=== PATIENT | female | born 1960 | race Caucasian/White ===

== ENCOUNTER 2016-06-03 10:00 | Inpatient (IN) | payer OTHER ==
[~2016-06-03] VITALS: Ht 165.1 cm; Wt 49.6 kg
[2016-06-03] VITALS (11 sets, daily range): BP systolic 128–236; BP diastolic 80–152
[2016-06-03] MEDS ORDERED: LABETALOL HCL 20 MG/4 ML VIAL IV ONE ×2 (10:15→11:00)
[2016-06-03 10:21] LABS: BASOPHILS # (AUTO) 0.1 10^3/uL (0.0-0.1); BASOPHILS % (AUTO) 1 % (0-10); EOSINOPHILS # (AUTO) 0.1 10^3/uL (0.0-0.3); EOSINOPHILS % (AUTO) 1 % (0-10); LYMPHOCYTES # (AUTO) 1.2 X 10^3 (1.0-4.0); LYMPHOCYTES % (AUTO) 10 % (12-44); MEAN CORPUSCULAR HEMOGLOBIN 30 PG (25-34); MEAN CORPUSCULAR HGB CONC 36 G/DL (32-36); MEAN CORPUSCULAR VOLUME 85 FL (80-99); MEAN PLATELET VOLUME 8.4 FL (7.4-10.4); MONOCYTES # (AUTO) 0.6 X 10^3 (0.0-1.0); MONOCYTES % (AUTO) 5 % (0-12); NEUTROPHILS # (AUTO) 10.2 X 10^3 (1.8-7.8); NEUTROPHILS % (AUTO) 84 % (42-75); PLATELET COUNT 237 10^3/uL (130-400); RED BLOOD COUNT 5.22 10^6/uL (4.35-5.85); RED CELL DISTRIBUTION WIDTH 12.7 % (10.0-14.5); WHITE BLOOD COUNT 12.2 10^3/uL (4.3-11.0)
[2016-06-03 10:30] LABS: INR 0.9 (0.8-1.4); PROTHROMBIN TIME PATIENT 12.1 SEC (12.2-14.7)
--- NOTE | 2016-06-03 10:34 | Diagnostic Imaging Report ---
EXAMINATION: Portable upright radiograph of the chest. INDICATION: Elevated blood pressure. FINDINGS: The lungs are hyperinflated and clear. The heart size is normal. No effusion or pneumothorax. The mediastinum and nahed appear unremarkable. IMPRESSION: Hyperinflated clear lungs. Dictated by: Dictated on workstation # [id number]
[2016-06-03 10:44] LABS: ALANINE AMINOTRANSFERASE 12 U/L (0-55); ALBUMIN 4.4 G/DL (3.2-4.5); ANION GAP 12 MMOL/L (5-14); ASPARTATE AMINO TRANSFERASE 20 U/L (5-34); BILIRUBIN,TOTAL 0.5 MG/DL (0.1-1.0); CALCIUM 9.5 MG/DL (8.5-10.1); CARBON DIOXIDE 21 MMOL/L (21-32); CHLORIDE 104 MMOL/L (98-107); CREATININE SERUM 0.75 MG/DL (0.60-1.30); GFR ESTIMATED > 60; GLUCOSE 117 MG/DL (70-105); MAGNESIUM 2.2 MG/DL (1.8-2.4); POTASSIUM 4.1 MMOL/L (3.6-5.0); SODIUM 137 MMOL/L (135-145); TOTAL PROTEIN 7.5 G/DL (6.4-8.2)
[2016-06-03] MEDS ORDERED: amLODIPine 5 MG (NORVASC) TAB PO ONE (11:00)
--- NOTE | 2016-06-03 11:01 | ED Cardiac General ---
History of Present Illness General Chief Complaint: Cardiac/General Problems Stated Complaint: ELEV BP Nursing Triage Note: ARRIVED VIA EMS FROM THE URGENT [facility]ARE [facility]. STATES YESTERDAY SHE WAS HAVING NUMBESS IN HER RIGHT LEG AND AGAIN THIS AM HAD THE SAME SYMPTOM. WENT TO URGENT CARE WHERE SHE WAS HAVING SEVERE HYPERTENSION. Source: patient, EMS Exam Limitations: no limitations History of Present Illness Time seen by provider: 10:04 Initial Comments This pleasant 55-year-old woman presents to the emergency room as a referral from [facility]. She presented to Urgent Care for upper extremity and right lower extremity paresthesias. She was found to be severely hypertensive with a blood pressure of 240/120. She was given aspirin and sent to the emergency room via EMS. Upon arrival her blood pressure was 244/140. Paresthesias were actually improving. She denies any chest pain. She had no cognitive deficits. She denies any drug or alcohol use. Patient reports the right lower extremity paresthesia is in the mid leg and was present yesterday. It recurs only with standing and she presumes to be related to sciatic irritation. The upper extremity paresthesias, however, are new today. She denies any headache or confusion. She is a recent and under much stress. Allergies and Home Medications Allergies Coded Allergies: Penicillins (Verified Allergy, Unknown, 06/03/16) Sulfa (Sulfonamide Antibiotics) (Verified Adverse Reaction, Unknown, ) MOM AND GRANDMA'S BOTH HAD ALLERGIES. Home Medications Alprazolam 0.25 Mg Tablet #30 0.25 MG PO Q8H PRN PRN ANXIETY Prescribed by: SUNITHA RODRIGUEZ on 06/04/16 1040 Amlodipine Besylate 5 Mg Tablet #30 5 MG PO DAILY Prescribed by: INDER BEARDEN on 06/04/16 0802 Metoprolol Succinate 25 Mg Tab.er.24h #30 25 MG PO DAILY Prescribed by: INDER BEARDEN on 06/04/16 0802 Review of Systems Constitutional: no symptoms reported EENTM: No Symptoms Reported Respiratory: No Symptoms Reported Cardiovascular: See HPI Gastrointestinal: No Symptoms Reported Genitourinary: No Symptoms Reported Musculoskeletal: no symptoms reported Skin: no symptoms reported Psychiatric/Neurological: See HPI Endocrine: No Symptoms Reported Past Nftxgiu-Almtqg-Otljgf Hx Patient Social History Alcohol Use: Denies Use Recreational Drug Use: No 2nd Hand Smoke Exposure: No Recent Foreign Travel: No Contact w/Someone Who Travel: No Recent Infectious Disease Expo: No Recent Hopitalizations: No Seasonal Allergies Seasonal Allergies: No Surgeries HX Surgeries: No Respiratory Hx Respiratory Disorders: No Cardiovascular Hx Cardiac Disorders: No Neurological Hx Neurological Disorders: No Reproductive System Hx Reproductive Disorders: No Sexually Transmitted Disease: No HIV/AIDS: No Genitourinary Hx Genitourinary Disorders: No Gastrointestinal Hx Gastrointestinal Disorders: No Musculoskeletal Hx Musculoskeletal Disorders: No Endocrine Hx Endocrine Disorders: No HEENT HX ENT Disorders: No Cancer Hx Cancer: No Psychosocial Hx Psychiatric Problems: No Blood Transfusions Hx Blood Disorders: No Adverse Reaction to a Blood Tr: No Family Medical History Significant Family History: Hypertension Physical Exam Vital Signs Vital Sign - Last 12Hours 06/03/16 06/03/16 10:02 10:05 Temp 98.6 Pulse 109 Resp 20 B/P 244/140 Pulse Ox 99 O2 Delivery Nasal Cannula O2 Flow Rate 2 Capillary Refill : Less Than 3 Seconds General Appearance: WD/WN Anxious (mildly anxious and briefly tearful) HEENT: PERRL/EOMI Normal ENT Inspection Pharynx Normal Neck: Normal Inspection Respiratory: Lungs Clear Normal Breath Sounds No Accessory Muscle Use No Respiratory Distress Cardiovascular: No Edema No Murmur Tachycardia (regular) Gastrointestinal: Normal Bowel Sounds Non Tender Soft Extremity: Normal Inspection No Pedal Edema Neurologic/Psychiatric: Alert Oriented x3 No Motor/Sensory Deficits Normal Mood/Affect director process improvement II-XII Norm as Tested Abnormal Cerebellar Tests Skin: Normal Color Warm/Dry Focused Exam Lactic Acid Level Laboratory Tests Test 06/03/16 08:45 06/03/16 10:10 Free Thyroxine 1.08NG/DL (0.70-1.48) Thyroid Stimulating Hormone (TSH) 1.46UIU/ML (0.35-4.94) Alanine Aminotransferase (ALT/SGPT) 12U/L (0-55) Albumin 4.4G/DL (3.2-4.5) Alkaline Phosphatase 91U/L (40-136) Anion Gap 12MMOL/L (5-14) Aspartate Amino Transf (AST/SGOT) 20U/L (5-34) BUN/Creatinine Ratio 11 Blood Urea Nitrogen 8MG/DL (7-18) Calcium Level 9.5MG/DL (8.5-10.1) Carbon Dioxide Level 21MMOL/L (21-32) Chloride Level 104MMOL/L (98-107) Creatinine 0.75MG/DL (0.60-1.30) Estimat Glomerular Filtration Rate > 60 Glucose Level 117MG/DL (70-105) H Magnesium Level 2.2MG/DL (1.8-2.4) Myoglobin 23.0NG/ML (10.0-92.0) Potassium Level 4.1MMOL/L (3.6-5.0) Sodium Level 137MMOL/L (135-145) Total Bilirubin 0.5MG/DL (0.1-1.0) Total Protein 7.5G/DL (6.4-8.2) Troponin I < 0.30NG/ML (<0.30) Progress/Results/Core Measures Results/Orders Lab Results Laboratory Tests Test 06/03/16 08:45 06/03/16 10:10 06/03/16 11:10 Range/Units Free Thyroxine 1.08 0.70-1.48 NG/DL Thyroid Stimulating Hormone (TSH) 1.46 0.35-4.94 UIU/ML Activated Partial Thromboplast Time 21 L 24-35 SEC Alanine Aminotransferase (ALT/SGPT) 12 0-55 U/L Albumin 4.4 3.2-4.5 G/DL Alkaline Phosphatase 91 40-136 U/L Anion Gap 12 5-14 MMOL/L Aspartate Amino Transf (AST/SGOT) 20 5-34 U/L BUN/Creatinine Ratio 11 Basophils # (Auto) 0.1 0.0-0.1 10^3/uL Basophils (%) (Auto) 1 0-10 % Blood Urea Nitrogen 8 7-18 MG/DL Calcium Level 9.5 8.5-10.1 MG/DL Carbon Dioxide Level 21 21-32 MMOL/L Chloride Level 104 98-107 MMOL/L Creatinine 0.75 0.60-1.30 MG/DL Eosinophils # (Auto) 0.1 0.0-0.3 10^3/uL Eosinophils (%) (Auto) 1 0-10 % Estimat Glomerular Filtration Rate > 60 Glucose Level 117 H 70-105 MG/DL Hematocrit 44 35-52 % Hemoglobin 15.8 11.5-16.0 G/DL INR Comment 0.9 0.8-1.4 Lymphocytes # (Auto) 1.2 1.0-4.0 X 10^3 Lymphocytes (%) (Auto) 10 L 12-44 % Magnesium Level 2.2 1.8-2.4 MG/DL Mean Corpuscular Hemoglobin 30 25-34 PG Mean Corpuscular Hemoglobin Concent 36 32-36 G/DL Mean Corpuscular Volume 85 80-99 FL Mean Platelet Volume 8.4 7.4-10.4 FL Monocytes # (Auto) 0.6 0.0-1.0 X 10^3 Monocytes (%) (Auto) 5 0-12 % Myoglobin 23.0 10.0-92.0 NG/ML Neutrophils # (Auto) 10.2 H 1.8-7.8 X 10^3 Neutrophils (%) (Auto) 84 H 42-75 % Platelet Count 237 130-400 10^3/uL Potassium Level 4.1 3.6-5.0 MMOL/L Prothrombin Time 12.1 L 12.2-14.7 SEC Red Blood Count 5.22 4.35-5.85 10^6/uL Red Cell Distribution Width 12.7 10.0-14.5 % Sodium Level 137 135-145 MMOL/L Total Bilirubin 0.5 0.1-1.0 MG/DL Total Protein 7.5 6.4-8.2 G/DL Troponin I < 0.30 <0.30 NG/ML White Blood Count 12.2 H 4.3-11.0 10^3/uL Urine Bacteria FEW H /HPF Urine Bilirubin NEGATIVE NEGATIVE Urine Casts NONE /LPF Urine Clarity CLEAR Urine Color YELLOW Urine Crystals NONE /LPF Urine Culture Indicated NO Urine Glucose (UA) NEGATIVE NEGATIVE Urine Ketones NEGATIVE NEGATIVE Urine Leukocyte Esterase NEGATIVE NEGATIVE Urine Mucus NEGATIVE /LPF Urine Nitrite NEGATIVE NEGATIVE Urine Protein 1+ H NEGATIVE Urine RBC NONE /HPF Urine RBC (Auto) NEGATIVE NEGATIVE Urine Specific [place] 1.015 L 1.016-1.022 Urine Squamous Epithelial Cells 10-25 H /HPF Urine Urobilinogen NORMAL NORMAL MG/DL Urine WBC RARE /HPF Urine pH 6.5 5-9 My Orders Orders-ALLEN MONTES MD Cbc With Automated Diff (06/03/16 10:08) Magnesium (06/03/16 10:08) Chest 1 View, Ap/Pa Only (06/03/16 10:08) Ekg Tracing (06/03/16 10:08) Cardiac Profile 1 (06/03/16 10:08) Comprehensive Metabolic Panel (06/03/16 10:08) Myoglobin Serum (06/03/16 10:08) Protime With Inr (06/03/16 10:08) Partial Thromboplastin Time (06/03/16 10:08) O2 (06/03/16 10:08) Monitor-Rhythm Ecg Trace Only (06/03/16 10:08) Lipid Panel (06/04/16 06:00) Saline Lock/Iv-Start (06/03/16 10:08) Labetalol Injection (Normodyne Injection (06/03/16 10:15) Thyroid Stimulating Hormone (06/03/16 10:13) Free T4 (Free Thyroxine) (06/03/16 10:13) Amlodipine Tablet (Norvasc Tablet) (06/03/16 11:00) Labetalol Injection (Normodyne Injection (06/03/16 11:00) Ua Culture If Indicated (06/03/16 11:03) Heart Healthy (06/03/16 Dinner) Medications Given in ED Vital Signs/I&O Vital Sign - Last 12Hours 06/03/16 06/03/16 10:02 10:05 Temp 98.6 Pulse 109 Resp 20 B/P 244/140 Pulse Ox 99 O2 Delivery Nasal Cannula O2 Flow Rate 2 Blood Pressure Mean: 174 Progress Note #1: Time: 11:06 Progress Note Patient remains significantly hypertensive with a blood pressure 187/108. An additional 10 mg of labetalol is being administered along with 5 mg of Norvasc orally. Heart rate has improved to 85. Progress Note #2: Time: 12:28 Progress Note Patient's blood pressure has remained stable with systolic blood pressures in the 180s and diastolic blood pressures in the 110s. While she is still rather hypertensive, this represents about a 25 percent drop in blood pressure which is appropriate for initial management. She has no paresthesias at this time. Heart rate remains controlled in the 80s. Workup was unremarkable. ECG Initial ECG Impression Date: Jun 03, 2016 Initial ECG Impression Time: 09:06 Initial ECG Rate: 109 Initial ECG Rhythm: S.Tach Comment Sinus tachycardia with no ST elevation or depression. No abnormal intervals or axis deviation. Diagnostic Imaging Diagonstic Imaging: Xray Plain Films/CT/US/NM/MRI: chest Comments Chest x-ray viewed by me and report reviewed. See report below: NAME: JUDITH KLINE [facility] REC#: [id number] PT STATUS: REG ER : 1960 PHYSICIAN: ALLEN MONTES MD ADMIT DATE: 06/03/16/ER Draft Date of Exam:06/03/16 CHEST 1 VIEW, AP/PA ONLY EXAMINATION: Portable upright radiograph of the chest. INDICATION: Elevated blood pressure. FINDINGS: The lungs are hyperinflated and clear. The heart size is normal. No effusion or pneumothorax. The mediastinum and nahed appear unremarkable. IMPRESSION: Hyperinflated clear lungs. Dictated on workstation # [id number] Dict: 06/03/16 1033 Trans: 06/03/16 1034 [id number] Interpreted by: DAVID HOWE MD Departure Communication Time/Spoke to Admitting Phy: 12:15 Communication Case was reviewed with Dr. Rodriguez who agrees with admission. She would like the patient on the cardiac step down unit. She requests consultation with Dr. Bearden for assistance in managing the hypertensive emergency. Time/Spoke to Consulting Physi: 12:20 Communication/Consulting Case reviewed with Dr. Bearden. He does not request any additional antihypertensives to be given at this time. He will assess the patient first. Call parameters were written on the bridging orders. Impression Impression: Primary Impression: Hypertensive emergency Additional Impressions: Paresthesias Sinus tachycardia Disposition: ADMITTED INPATIENT Condition: Improved Decision to Admit Reason: Admit from ER (General) Decision to Admit/Date: Jun 03, 2016 Time/Decision to Admit Time: 10:10 Departure-Patient Inst. Scripts Alprazolam 0.25 Mg Tablet0.25 Mg PO Q8H PRN ANXIETY #30 TAB Prov:SUNITHA RODRIGUEZ DO 06/04/16 Amlodipine Besylate 5 Mg Tablet5 Mg PO DAILY #30 TAB Ref 2 Prov:INDER BEARDEN MD 06/04/16 Metoprolol Succinate 25 Mg Tab.er.24h25 Mg PO DAILY #30 TAB Ref 2 Prov:INDER BEARDEN MD 06/04/16 ALLEN MONTES MD Jun 03, 2016 11:01 Time/Decision to Admit Time: 10:10 Departure-Patient Inst. Scripts No Active Prescriptions or Reported Meds ALLEN MONTES MD Jun 03, 2016 11:01
[2016-06-03 11:09] LABS: THYROID STIMULATING HORMONE 1.46 UIU/ML (0.35-4.94)
[2016-06-03 11:17] LABS: BILIRUBIN,URINE NEGATIVE (NEGATIVE); KETONES,URINE NEGATIVE (NEGATIVE); LEUKOCYTE ESTERASE ,URINE NEGATIVE (NEGATIVE); NITRITE,URINE NEGATIVE (NEGATIVE); PH,URINE 6.5 (5-9); PROTEIN,URINE 1+ (NEGATIVE); UROBILINOGEN,URINE NORMAL (NORMAL)
[2016-06-03 11:17] LABS: BLOOD UREA NITROGEN 8 MG/DL (7-18); BUN/CREATININE RATIO 11
[2016-06-03 11:29] LABS: WBC,URINE RARE /HPF
[2016-06-03] MEDS ORDERED: meTOprolol 5 MG/5 ML (LOPRESSOR) VIAL ONE (13:34)
[2016-06-03] MEDS ORDERED: ENALAPRILAT 2.5 MG/2 ML (VASOTEC) VIAL IV ONE (13:34)
[2016-06-03] MEDS ORDERED: ONDANSETRON 4 MG/2 ML (SDV) Z0FRAN IV PRN (13:45)
[2016-06-03] MEDS ORDERED: CATHETER FLUSH 10 ML SYR IV PRN (13:45)
[2016-06-03] MEDS ORDERED: ENALAPRILAT 2.5 MG/2 ML (VASOTEC) VIAL IV STA (13:47)
--- NOTE | 2016-06-03 13:48 | Consultation-Cardiology ---
HPI-Cardiology Cardiology Consultation Date of Consultation 06/03/16 Date of Admission Indication: hypertension HPI 55 years old lady with no significant past history, has been under significant stress after losing her few months ago. She was doing well, noted that she's been having numbness in her right leg. [place] weak in her right leg. Went to the urgent care and noted to be severely hypertensive, patient was sent to the emergency room and admitted up on my evaluation she was laying down in bed. Denied any chest pain or shortness of breath, expressed that she is feeling some numbness in her right leg but has history of sciatic nerve in back pain. Denied any palpitation, syncope or near syncopal episode, no shortness of breath , her blood pressure was over 200 systolic and over 120 diastolic. Home Medications & Allergies Allergies: Coded Allergies: Penicillins (Verified Allergy, Unknown, 06/03/16) Sulfa (Sulfonamide Antibiotics) (Verified Adverse Reaction, Unknown, ) MOM AND GRANDMA'S BOTH HAD ALLERGIES. Home Medication List Reviewed: Yes ONM-Kllpno-Omkpzx Hx Patient Social History Marital Status: Alcohol Use: Denies Use Recreational Drug Use: No 2nd Hand Smoke Exposure: No Recent Foreign Travel: No Recent Infectious Disease Expo: No Recent Hopitalizations: No Past Medical History no known past history Family Medical History Significant Family History: Hypertension Family Medical Hx family history of heart disease with both parents has history of hypertension, coronary artery disease and atrial fibrillation Constitutional: see HPINo chills, No diaphoresis, No dizziness, No fever, No malaise, weaknessNo weight gain, No weight loss, No other EENTM: no symptoms reported see HPI Respiratory: no symptoms reported see HPI Cardiovascular: no symptoms reported see HPI Gastrointestinal: no symptoms reported see HPI Genitourinary: no symptoms reported see HPI Musculoskeletal: no symptoms reported see HPI Skin: no symptoms reported see HPI Psychiatric/Neurological: No Symptoms Reported See HPI Reviewed Test Results Reviewed Test Results Lab Laboratory Tests Test 06/03/16 08:45 06/03/16 10:10 06/03/16 11:10 Range/Units Free Thyroxine 1.08 0.70-1.48 NG/DL Thyroid Stimulating Hormone (TSH) 1.46 0.35-4.94 UIU/ML Activated Partial Thromboplast Time 21 L 24-35 SEC Alanine Aminotransferase (ALT/SGPT) 12 0-55 U/L Albumin 4.4 3.2-4.5 G/DL Alkaline Phosphatase 91 40-136 U/L Anion Gap 12 5-14 MMOL/L Aspartate Amino Transf (AST/SGOT) 20 5-34 U/L BUN/Creatinine Ratio 11 Basophils # (Auto) 0.1 0.0-0.1 10^3/uL Basophils (%) (Auto) 1 0-10 % Blood Urea Nitrogen 8 7-18 MG/DL Calcium Level 9.5 8.5-10.1 MG/DL Carbon Dioxide Level 21 21-32 MMOL/L Chloride Level 104 98-107 MMOL/L Creatinine 0.75 0.60-1.30 MG/DL Eosinophils # (Auto) 0.1 0.0-0.3 10^3/uL Eosinophils (%) (Auto) 1 0-10 % Estimat Glomerular Filtration Rate > 60 Glucose Level 117 H 70-105 MG/DL Hematocrit 44 35-52 % Hemoglobin 15.8 11.5-16.0 G/DL INR Comment 0.9 0.8-1.4 Lymphocytes # (Auto) 1.2 1.0-4.0 X 10^3 Lymphocytes (%) (Auto) 10 L 12-44 % Magnesium Level 2.2 1.8-2.4 MG/DL Mean Corpuscular Hemoglobin 30 25-34 PG Mean Corpuscular Hemoglobin Concent 36 32-36 G/DL Mean Corpuscular Volume 85 80-99 FL Mean Platelet Volume 8.4 7.4-10.4 FL Monocytes # (Auto) 0.6 0.0-1.0 X 10^3 Monocytes (%) (Auto) 5 0-12 % Myoglobin 23.0 10.0-92.0 NG/ML Neutrophils # (Auto) 10.2 H 1.8-7.8 X 10^3 Neutrophils (%) (Auto) 84 H 42-75 % Platelet Count 237 130-400 10^3/uL Potassium Level 4.1 3.6-5.0 MMOL/L Prothrombin Time 12.1 L 12.2-14.7 SEC Red Blood Count 5.22 4.35-5.85 10^6/uL Red Cell Distribution Width 12.7 10.0-14.5 % Sodium Level 137 135-145 MMOL/L Total Bilirubin 0.5 0.1-1.0 MG/DL Total Protein 7.5 6.4-8.2 G/DL Troponin I < 0.30 <0.30 NG/ML White Blood Count 12.2 H 4.3-11.0 10^3/uL Urine Bacteria FEW H /HPF Urine Bilirubin NEGATIVE NEGATIVE Urine Casts NONE /LPF Urine Clarity CLEAR Urine Color YELLOW Urine Crystals NONE /LPF Urine Culture Indicated NO Urine Glucose (UA) NEGATIVE NEGATIVE Urine Ketones NEGATIVE NEGATIVE Urine Leukocyte Esterase NEGATIVE NEGATIVE Urine Mucus NEGATIVE /LPF Urine Nitrite NEGATIVE NEGATIVE Urine Protein 1+ H NEGATIVE Urine RBC NONE /HPF Urine RBC (Auto) NEGATIVE NEGATIVE Urine Specific [place] 1.015 L 1.016-1.022 Urine Squamous Epithelial Cells 10-25 H /HPF Urine Urobilinogen NORMAL NORMAL MG/DL Urine WBC RARE /HPF Urine pH 6.5 5-9 Physical Exam Vital Signs Vital Sign - Last 12Hours 06/03/16 06/03/16 10:02 10:05 Temp 98.6 Pulse 109 Resp 20 B/P 244/140 Pulse Ox 99 O2 Delivery Nasal Cannula O2 Flow Rate 2 Capillary Refill : Less Than 3 Seconds General Appearance: No Apparent Distress WD/WN Eyes: Bilateral Eye EOMI, Bilateral Eye Normal Inspection, Bilateral Eye PERRL HEENT: PERRL/EOMI TMs Normal Normal ENT Inspection Pharynx Normal Neck: Full Range of Motion Normal Inspection Non Tender Supple Carotid Bruit Respiratory: Chest Non Tender Lungs Clear Normal Breath Sounds No Accessory Muscle Use No Respiratory Distress Cardiovascular: Regular Rate, Rhythm No Edema No Gallop No JVD No Murmur Normal Peripheral Pulses Gastrointestinal: Normal Bowel Sounds No Organomegaly No Pulsatile Mass Non Tender Soft Back: Normal Inspection No CVA Tenderness No Vertebral Tenderness Extremity: Normal Capillary Refill Normal Inspection Normal Range of Motion Non Tender No Calf Tenderness No Pedal Edema Neurologic/Psychiatric: Alert Oriented x3 No Motor/Sensory Deficits Normal Mood/Affect Skin: Normal Color Warm/Dry Lymphatic: No Adenopathy A/P-Cardiology Admission Diagnosis Hypertensive emergency Anxiety Family history of atherosclerosis Assessment/Plan Hypertensive emergency, patient is still severely hypertensive. Given labetalol and Norvasc 5 mg in the emergency room, I started her on Toprol-XL 25 mg daily and Norvasc 5 mg daily, gave her 5 mg of Lopressor IV and 5 mg of enalapril IV for the acute phase. If she can tolerate a higher dose of beta blockers and amlodipine I will continue on them otherwise I will add KATHY inhibitor and/or ARB. I will consider the use of diuretics if needed. I will evaluate 2-D echocardiogram, renal arterial Doppler, electrolytes and TSH level were normal. Anxiety. Family history of heart disease INDER PARRISH MD Jun 03, 2016 13:47
[2016-06-03] MEDS: CATHETER FLUSH 10 ML SYR IV SCH ×2 (13:58→21:51)
[2016-06-03] MEDS ORDERED: ENOXAPARIN 40 MG/0.4 ML (LOVENOX) SYR SQ SCH (14:00)
[2016-06-03] MEDS ORDERED: FLU TRIvalent (5 YOA+) 2016-17 (AFLURIA) 0.5 ML IM ONE (16:00)
--- NOTE | 2016-06-03 16:49 | Diagnostic Imaging Report ---
Arterial renal duplex ultrasound. INDICATION: Hypertensive crisis. FINDINGS: The right kidney is 10.4 cm in length and the (right?) kidney is also 10.4 cm in length. There is no hydronephrosis or focal lesion in either kidney. The right renal artery velocities are 120, 78 and 70 cm/sec from proximal to distal and on the left 120, 144 and 107 cm/sec from proximal to distal. Abdominal aortic peak systolic velocity is 84 cm/sec. Resistive index in the right kidney is 0.68 and on the left side is 0.61 to 0.69. IMPRESSION: No evidence of renal artery stenosis. Unremarkable exam. Dictated by: Dictated on workstation # [id number]
--- NOTE | 2016-06-03 17:10 | History & Physical-Hospitalist ---
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 They took her blood pressure and it was 240/140 ambulance called sent to the emergency room was given appropriate medication that was tolerated well but considering the severity of the high blood pressure cardiology was consulted and will be monitored closely and she will establish with a primary care provider for close monitoring of blood pressure issues. I did talk to her about overwhelming anxiety increased reaction and she does wish to have something to calm her nerves which will help high blood pressure. Source: patient Date Seen 06/03/16 Attending Physician Alissa Spann DO PCP No,Local Physician Referring Physician Date of Admission Jun 03, 2016 at 12:59 Home Medications & Allergies Home Medications Reviewed patient Home Medication Reconciliation Form Allergies Coded Allergies: Penicillins (Verified Allergy, Unknown, 06/03/16) Sulfa (Sulfonamide Antibiotics) (Verified Adverse Reaction, Unknown, ) MOM AND GRANDMA'S BOTH HAD ALLERGIES. Past Xiffges-Bkdfou-Kywfpv Hx Patient Social History Marrital Status: (03/06) Alcohol Use: Denies Use Recreational Drug Use: No Smoking Status: Never a Smoker 2nd Hand Smoke Exposure: No Physical Abuse Screen: No Sexual Abuse: No Recent Foreign Travel: No Contact w/other who traveled: No Recent Hopitalizations: No Recent Infectious Disease Expo: No Seasonal Allergies Seasonal Allergies: No Surgeries HX Surgeries: No Respiratory Hx Respiratory Disorders: No Cardiovascular Hx Cardiovascular Disorders: No Neurological Hx Neurological Disorders: No Reproductive System Hx Reproductive Disorders: No Sexually Transmitted Disease: No HIV/AIDS: No Genitourinary Hx Genitourinary Disorders: No Gastrointestinal Hx Gastrointestinal Disorders: No Musculoskeletal Hx Musculoskeletal Disorders: No Endocrine Hx Endocrine Disorders: No HEENT HX ENT Disorders: No Cancer Hx Cancer: No Psychosocial Hx Psychiatric Problems: No Blood Transfusions Hx Blood Disorders: No Adverse Reaction to a Blood Tr: No Family Medical History Significant Family History: Hypertension Review of Systems Constitutional: see HPI EENTM: no symptoms reported Respiratory: no symptoms reported Cardiovascular: chest pain Gastrointestinal: no symptoms reported Genitourinary: no symptoms reported Musculoskeletal: back pain Skin: no symptoms reported Psychiatric/Neurological: Anxiety Depressed Physical Exam Physical Exam Vital Signs Vital Sign - Last 12Hours 06/03/16 06/03/16 10:02 10:05 Temp 98.6 Pulse 109 Resp 20 B/P 244/140 Pulse Ox 99 O2 Delivery Nasal Cannula O2 Flow Rate 2 Capillary Refill : Less Than 3 Seconds General Appearance: No Apparent Distress WD/WN Thin Other (flat affect) Eyes: Bilateral Eye Normal Inspection, Bilateral Eye PERRL HEENT: PERRL/EOMI Normal ENT Inspection Pharynx Normal Neck: Full Range of Motion Normal Inspection Non Tender Supple Carotid Bruit Respiratory: Chest Non Tender Lungs Clear Normal Breath Sounds No Accessory Muscle Use No Respiratory Distress Cardiovascular: Regular Rate, Rhythm No Edema No Gallop No JVD No Murmur Normal Peripheral Pulses Gastrointestinal: Normal Bowel Sounds No Organomegaly No Pulsatile Mass Non Tender Soft Back: Normal Inspection No CVA Tenderness No Vertebral Tenderness Extremity: Normal Capillary Refill Normal Inspection Normal Range of Motion Non Tender No Calf Tenderness No Pedal Edema Neurologic/Psychiatric: Alert Oriented x3 No Motor/Sensory Deficits Depressed Affect Skin: Normal Color Warm/Dry Lymphatic: No Adenopathy Results Results/Procedures Lab Laboratory Tests 06/03/16 10:10 Assessment/Plan Admission Diagnosis Assessment: Hypertensive urgency with borderline hypertension in the past but has not had it checked for many years with family history of hypertension 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
[2016-06-03] MEDS ORDERED: fentaNYL INJECTION 100 MCG/2 ML AMP IVP PRN (17:15)
[2016-06-03] MEDS ORDERED: ONDANSETRON 4 MG/2 ML (SDV) Z0FRAN IVP PRN (17:15)
[2016-06-03] MEDS ORDERED: ACETAMINOPHEN 500 MG TAB (TYLENOL) PO PRN (17:15)
[2016-06-03] MEDS ORDERED: HYDROcodone/APAP 5 MG/325 MG (LORTAB) TAB PO PRN (17:15)
[2016-06-03] MEDS ORDERED: ALPRAZolam 0.25 MG (XANAX) TAB PO PRN (17:15)
[2016-06-04] VITALS (7 sets, daily range): BP systolic 113–141; BP diastolic 66–89
[2016-06-04 04:50] LABS: CHOLESTEROL 173 MG/DL (< 200); DIRECT LDL 104 MG/DL (1-129); TRIGLYCERIDES 57 MG/DL (<150); VLDL CHOLESTEROL 11 MG/DL (5-40)
[2016-06-04 04:52] LABS: ALANINE AMINOTRANSFERASE 10 U/L (0-55); ALBUMIN 3.8 G/DL (3.2-4.5); ANION GAP 12 MMOL/L (5-14); ASPARTATE AMINO TRANSFERASE 14 U/L (5-34); BILIRUBIN,TOTAL 0.9 MG/DL (0.1-1.0); BLOOD UREA NITROGEN 13 MG/DL (7-18); BUN/CREATININE RATIO 18; CALCIUM 9.4 MG/DL (8.5-10.1); CARBON DIOXIDE 23 MMOL/L (21-32); CHLORIDE 103 MMOL/L (98-107); CREATININE SERUM 0.74 MG/DL (0.60-1.30); GFR ESTIMATED > 60; GLUCOSE 92 MG/DL (70-105); MAGNESIUM 2.2 MG/DL (1.8-2.4); POTASSIUM 3.5 MMOL/L (3.6-5.0); SODIUM 138 MMOL/L (135-145); TOTAL PROTEIN 6.1 G/DL (6.4-8.2)
[2016-06-04] MEDS: CATHETER FLUSH 10 ML SYR IV SCH (06:02)
--- NOTE | 2016-06-04 08:01 | Cardiology Progress Note ---
Subjective Subjective/Events-last exam patient is feeling better, no new complaint, blood pressure is better Review of Systems General: No Chills, No Night Sweats, No Fatigue, No Malaise, No Appetite, No Other HEENT: No Head Aches, No Visual Changes, No Eye Pain, No Ear Pain, No Dysphasia , No Sinus Congestion, No Post Nasal Drip, No Sore Throat, No Other Pulmonary: No Dyspnea, No Cough, No Pleuritic Chest Pain, No Other Cardiovascular: No: Chest Pain, Edema, Lt Headedness, Orthopnea, Other, Palpitations, Paroxysmal Noc. Dyspnea Objective-Cardiology Exam Last Set of Vital Signs Vital Signs 06/03/16 06/04/16 06/04/16 10:05 04:00 06:00 Temp 97.2 Pulse 75 Resp 18 B/P 120/73 Pulse Ox 99 O2 Delivery Room Air O2 Flow Rate 2 Capillary Refill : Less Than 3 Seconds I&O Bad tableGeneral: Alert, Oriented X3, Cooperative HEENT: Atraumatic, PERRLA Neck: Supple, No JVD, No Thyromegaly Lungs: Clear to Auscultation, Normal Air Movement Heart: Regular Rate, Normal S1, Normal S2, No Murmurs Abdomen: Normal Bowel Sounds, Soft, No Tenderness, No Hepatosplenomegaly, No Masses Extremities: No Clubbing, No Cyanosis, No Edema, Normal Pulses, No Tenderness/ Swelling Skin: No Rashes, No Breakdown, No Significant Lesion Neuro: Normal Gait, Normal Speech, Strength at 5/5 X4 Ext, Normal Tone, Sensation Intact Psych/Mental Status: Mental Status NL, Mood NL Results Lab Laboratory Tests 06/03/16 10:10 06/04/16 03:34 A/P-Cardiology Admission Diagnosis Hypertensive emergency Anxiety Family history of atherosclerosis Assessment/Plan Hypertensive emergency, better control at this time. No abnormality was noted. Continue to monitor Okay for discharge and follow up as an outpatient Anxiety. Family history of heart disease Clinical Quality Measures DVT/VTE Risk/Contraindication: Risk Factor Score Per Nursin RFS Level Per Nursing on Admit: 1=Low/No VTE PPX INDER PARRISH MD Jun 04, 2016 08:00
[2016-06-04] MEDS ORDERED: METO-270 PO (08:02)
[2016-06-04] MEDS ORDERED: AMLO5TAB2 PO (08:02)
[2016-06-04] MEDS ORDERED: amLODIPine 5 MG (NORVASC) TAB PO SCH (09:00)
--- NOTE | 2016-06-04 10:31 | Discharge Summary-Hospitalist ---
Diagnosis/Chief Complaint Date of Admission Jun 03, 2016 at 12:59 Date of Discharge Admission Diagnosis Assessment: Hypertensive urgency with borderline hypertension in the past but has not had it checked for many years with family history of hypertension Recent status with complex grief reaction since February 2016 Sciatica nerve pain Discharge Diagnosis Assessment: Hypertensive urgency with borderline hypertension in the past but has not had it checked for many years with family history of hypertension Recent status with complex grief reaction since February 2016 Sciatica nerve pain Plan: blood pressure closely Xanax when necessary Establish primary care provider Discharge is stable tomorrow Reason Hospital Visit/Course CC: HTN urgency HPI: This is a 55-year-old white female with no local physician with a past medical history of borderline hypertension and recent status when her who worked for the 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 They took her blood pressure and it was 240/140 ambulance called sent to the emergency room was given appropriate medication that was tolerated well but considering the severity of the high blood pressure cardiology was consulted and will be monitored closely and she will establish with a primary care provider for close monitoring of blood pressure issues. I did talk to her about overwhelming anxiety increased reaction and she does wish to have something to calm her nerves which will help high blood pressure. 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 Dr. Bearden has given the ok for DC. Patient Interview: Pt states that she uses [facility]. Dr. Spann informs pt regarding planned DC meds. Pt states that she will have a follow-up appointment at [facility]. Dr. Spann discusses elevated BP with pt, and informs her that it may remain high for the next few months. No fever, vital signs stable, improved blood pressure Regular rate and rhythm, clear to auscultation bilaterally No edema Family at bedside Plan: DC with close [facility] follow-up. Scribed by Jose Benavidez under the direct supervision of Dr. Spann. Discharge Summary Discharge Physical Examination Allergies: Coded Allergies: Penicillins (Verified Allergy, Unknown, 06/03/16) Sulfa (Sulfonamide Antibiotics) (Verified Adverse Reaction, Unknown, ) MOM AND GRANDMA'S BOTH HAD ALLERGIES. Vitals & I&Os Vital Signs Date Time Temp Pulse Resp B/P Pulse Ox O2 Delivery O2 Flow Rate FiO2 06/04/16 08:00 97.8 69 18 141/89 Room Air 06/04/16 04:00 99 06/03/16 10:05 2 Hospital Course Labs (last 24 hrs) Laboratory Tests 06/03/16 11:10: Urine Bacteria FEWH, Urine Bilirubin NEGATIVE, Urine Casts NONE, Urine Clarity CLEAR, Urine Color YELLOW, Urine Crystals NONE, Urine Culture Indicated NO, Urine Glucose (UA) NEGATIVE, Urine Ketones NEGATIVE, Urine Leukocyte Esterase NEGATIVE, Urine Mucus NEGATIVE, Urine Nitrite NEGATIVE, Urine Protein 1+H, Urine RBC NONE, Urine RBC (Auto) NEGATIVE, Urine Specific [place] 1.015L, Urine Squamous Epithelial Cells 10-25H, Urine Urobilinogen NORMAL, Urine WBC RARE, Urine pH 6.5 06/04/16 03:34: Alanine Aminotransferase (ALT/SGPT) 10, Albumin 3.8, Alkaline Phosphatase 71, Anion Gap 12, Aspartate Amino Transf (AST/SGOT) 14, BUN/Creatinine Ratio 18, Blood Urea Nitrogen 13, Calcium Level 9.4, Carbon Dioxide Level 23, Chloride Level 103, Cholesterol Level 173, Creatinine 0.74, Estimat Glomerular Filtration Rate > 60, Glucose Level 92, HDL Cholesterol 64H, LDL Cholesterol Direct 104, Magnesium Level 2.2, Potassium Level 3.5L, Sodium Level 138, Total Bilirubin 0.9, Total Protein 6.1L, Triglycerides Level 57, VLDL Cholesterol 11 Pending Labs Laboratory Tests 06/04/16 03:34: Alanine Aminotransferase (ALT/SGPT) 10, Albumin 3.8, Alkaline Phosphatase 71, Anion Gap 12, Aspartate Amino Transf (AST/SGOT) 14, BUN/Creatinine Ratio 18, Blood Urea Nitrogen 13, Calcium Level 9.4, Carbon Dioxide Level 23, Chloride Level 103, Cholesterol Level 173, Creatinine 0.74, Estimat Glomerular Filtration Rate > 60, Glucose Level 92, HDL Cholesterol 64, LDL Cholesterol Direct 104, Magnesium Level 2.2, Potassium Level 3.5, Sodium Level 138, Total Bilirubin 0.9, Total Protein 6.1, Triglycerides Level 57, VLDL Cholesterol 11 Discharge Home Medications: Active Scripts Active Alprazolam 0.25 Mg Tablet 0.25 Mg PO Q8H PRN Amlodipine Besylate 5 Mg Tablet 5 Mg PO DAILY Metoprolol Succinate 25 Mg Tab.er.24h 25 Mg PO DAILY Instructions to patient/family Please see electonic discharge instructions given to patient. Clinical Quality Measures DVT/VTE Risk/Contraindication: Risk Factor Score Per Nursin RFS Level Per Nursing on Admit: 1=Low/No VTE PPX SUNITHA SPANN DO Jun 04, 2016 10:31
[2016-06-04] MEDS ORDERED: ALPR0.254 PO (10:40)
--- NOTE | 2016-06-04 10:41 | Discharge Instructions ---
Discharge Instructions Discharge Medications New, Converted or Re-Newed RX: Transmitted to Pharmacy New Medications: Alprazolam (Alprazolam) 0.25 Mg Tablet 0.25 MG PO Q8H PRN ANXIETY #30 TAB Amlodipine Besylate (Amlodipine Besylate) 5 Mg Tablet 5 MG PO DAILY #30 Ref 2 TAB Metoprolol Succinate (Metoprolol Succinate) 25 Mg Tab.er.24h 25 MG PO DAILY #30 Ref 2 TAB Patient Instructions Goal/Follow Up Appt: [facility] to establish care Activity & Diet Discharge Diet: No Restrictions Activity as Tolerated: Yes SUNITHA RODRIGUEZ DO Jun 04, 2016 10:41
--- NOTE | 2016-06-05 07:16 | ECHOCARDIOGRAPHY REPORT ---
PROCEDURE PHYSICIAN: INDER PARRISH DATE OF PROCEDURE: 06/03/2016 TWO DIMENSIONAL ECHOCARDIOGRAM REPORT PRIMARY PHYSICIAN: OTHER PHYSICIAN: REFERRING PHYSICIAN: ORDERING PHYSICIAN: INDICATION FOR THE PROCEDURE: Hypertensive emergency. MEASUREMENTS DERIVED VALUES LV DIAMETER (LAX) NORMALS NORMALS Diastolic 3.5 (3.6-5.2) Eject. Fract. 60% (60%+/-6%) Systolic (2.3-3.9) Diastolic Vol. % Shortening (0.22-0.42) Systolic Vol. Aortic Root IVS THICKNESS Diastolic 0.8 (0.6-1.1) LVPW THICKNESS Diastolic 0.8 (0.6-1.1) LA DIAMETER Systolic 2.1 (2.1-3.7) FINDINGS: 1. Technical quality is good. 2. The left ventricle is normal in size. Normal contractility. Systolic function appeared to be normal. Estimated ejection fraction 60%. 3. The left atrium is normal in size. No clot or thrombus were seen within the left atrium. 4. The right atrium and right ventricle are normal in size. No clot or thrombus were seen within the right side. 5. Mitral valve is normal in morphology with mild to moderate mitral regurgitation noted by color Doppler flow. No mitral valve prolapse. No mitral valve stenosis. 6. Aortic valve is trileaflet with normal opening and closing pattern. No significant aortic stenosis or regurgitation was seen. 7. Tricuspid valve is normal in morphology with mild tricuspid regurgitation noted by color Doppler flow. Doppler across tricuspid valve estimated pulmonary artery pressure of 14+ right atrial pressure. 8. Pulmonic valve is functioning normally. 9. No pericardial effusion. CONCLUSION: 1. Normal left ventricular size and systolic function. Estimated ejection fraction 60%. 2. Mild to moderate mitral regurgitation. Mild tricuspid regurgitation. 3. Estimated pulmonary artery pressure of 20 mmHg Job ID: [id number] Dictated Date: 06/04/2016 14:55:45 Jet Handler Date: 06/05/2016 07:12:23 / krishna
== END 2016-06-04 11:55 | disposition home or self-care (01) | DRG 305 ==
LOC: ER 10:04 → ICU 12:59
PROVIDERS: ADMIT Internal Medicine; ATTEND Internal Medicine
DX: I16.0 Hypertensive urgency (principal); F41.9 Anxiety disorder, unspecified; M54.41 Lumbago with sciatica, right side; F43.20 Adjustment disorder, unspecified
CPT/HCPCS: 36415; 71010; 80053; 80061; 81000; 83735; 83874; 84439; 84443; 84484; 85025; 85610; 85730; 93005; 93041; 93306; 93975; 96374; 96376

== ENCOUNTER 2018-05-02 09:04 | Emergency (ER) | payer SELFPAY ==
[~2018-05-02] VITALS: Ht 166.4 cm; Wt 53.1 kg
[~2018-05-02 09:04] MED LIST: ALPR0.254 PO; AMLO5TAB9 PO; METO-387 PO
--- OUTSIDE RECORDS SUMMARY | 2018-05-02 09:08 | XMS REPORT ---
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.10 Active [id number] ALLERGIES No Information ENCOUNTERS Encounter Location Date Diagnosis [place] [id number] [place] [address] 84838- 7276 Feb, [place] [id number] [place] [address] 32092- 0204 Jan, [place] [id number] [place] [address] 83063- 6015 Jan, [place] [id number] [place] [address] 45818- 2994 Jan, Lumbago with sciatica, right side M54.41 [facility] [id number] [place] [address] 20701- 1789 Dec, Essential hypertension I10 ; Lumbago with sciatica, right side M54.41 ; Other chronic pain G89.29 and Coronary artery disease involving ho-chunk coronary artery of ho-chunk heart without angina pectoris I25.10 [facility] [id number] [place] [address] 52940- 9687 Dec, [place] [id number] [place] [address] 92384- 0759 Nov, Lumbago with sciatica, right side M54.41 [facility] [id number] [place] [address] 61210- 2810 Nov, Essential hypertension I10 [facility] [id number] [place] [address] 62195- 5203 Oct, Lumbago with sciatica, right side M54.41 [place] [address] 78444- 8938 Oct, Lumbago with sciatica, right side M54.41 [place] [id number] [place] [address] 96580- 1165 Sep, Lumbago with sciatica, right side M54.41 [place] [id number] [place] [address] 86859- 4379 Aug, Lumbago with sciatica, right side M54.41 [place] [id number] [place] [address] 88848- 1080 Aug, Lumbago with sciatica, right side M54.41 ; Essential hypertension I10 ; Screening for diabetes mellitus Z13.1 ; Screening for cholesterol level Z13.220 and Other chronic pain G89.29 [place] [id number] [place] [address] 29110- 1864 Aug, [place] [id number] [place] [address] 50844- 0847 Aug, Lumbago with sciatica, right side M54.41 [place] [id number] [place] [address] 00088- 2135 July, Lumbago with sciatica, right side M54.41 [place] [id number] [place] [address] 60934- 6333 Jun, Lumbago with sciatica, right side M54.41 [place] [id number] [place] [address] 08891- 5560 Jun, Lumbago with sciatica, right side M54.41 [facility] [id number] [place] [address] 33350- 5071 May, Lumbago with sciatica, right side M54.41 [facility] [id number] [place] [address] 53503- 5136 Apr, Lumbago with sciatica, right side M54.41 [facility] [id number] [place] [address] [phone]- 0963 Mar, Lumbago with sciatica, right side M54.41 [facility] [id number] [place] [address] [phone]- 1416 Mar, Lumbago with sciatica, right side M54.41 [facility] [id number] [place] [address] 36168- 2446 Mar, [facility] [id number] [place] [address] 03025- 0446 Mar, Essential hypertension I10 ; Lumbago with sciatica, right side M54.41 and Other chronic pain G89.29 [place] [id number] [place] [address] 62561- 1467 Feb, [facility] [id number] [place] [address] 29660- 5099 Aug, Essential hypertension I10 [facility] [id number] [place] [address] 69531- 5424 July, Essential hypertension I10 [facility] [id number] [place] [address] 94962- 1393 July, Essential hypertension I10 [facility] [id number] [place] [address] 08517- 1945 July, Essential hypertension I10 [facility] [id number] [place] [address] 85547- 3423 Jun, Essential hypertension I10 [facility] [address] [facility] [id number] [place] [address] 9835 Jun, Essential hypertension I10 [facility] [address] [facility] [id number] [address] Jun, Essential hypertension I10 and Coronary artery disease involving ho-chunk coronary artery of ho-chunk heart without angina pectoris I25.10 [facility] [address] [facility] [id number] [address] May, IMMUNIZATIONS No Known Immunizations SOCIAL HISTORY Never Assessed REASON FOR VISIT Physical Therapy Concerns PLAN OF CARE VITAL SIGNS MEDICATIONS Medication Instructions Dosage Frequency Start Date End Date Duration Status Mobic 7.5 MG Orally Once a day 1 tablet 24h Jan, 30 day(s) Active RESULTS No Results PROCEDURES No Known procedures INSTRUCTIONS MEDICATIONS ADMINISTERED No Known Medications MEDICAL (GENERAL) HISTORY Type Description Date Medical History hypertension: Nml Echo and Renal US 05/2016 during hospitalization Medical History anxiety since passing of (feb 2016) Surgical History No know Surgical history Hospitalization History Hypertension. 1 night stay. 05/2016
--- OUTSIDE RECORDS SUMMARY | 2018-05-02 09:08 | XMS REPORT ---
Author Author RINKU ALFARO [facility] Address [address] [place] [address] Care Team Providers Care Supply Chain Generalist Name Role Phone RINKU ALFARO Unavailable PROBLEMS ALLERGIES No Information ENCOUNTERS IMMUNIZATIONS No Known Immunizations SOCIAL HISTORY No smoking Hx information available REASON FOR VISIT PLAN OF CARE VITAL SIGNS MEDICATIONS Unknown Medications RESULTS No Results PROCEDURES INSTRUCTIONS MEDICATIONS ADMINISTERED No Known Medications MEDICAL (GENERAL) HISTORY
--- OUTSIDE RECORDS SUMMARY | 2018-05-02 09:08 | XMS REPORT ---
Author Author RINKU ALFARO [facility] Address [address] [place] [address] Care Team Providers Care Tin Dipper Name Role Phone RINKU ALFARO Unavailable PROBLEMS Type Condition ICD9-CM Code RHY44-CS Code Onset Dates Condition Status SNOMED Code Problem Other chronic pain G89.29 Active 56072283 Problem Lumbago with sciatica, right side M54.41 Active 058226768 Problem Essential hypertension I10 Active 41653643 Problem Coronary artery disease involving havasupai coronary artery of havasupai heart without angina pectoris I25.10 Active [id number] ALLERGIES No Information ENCOUNTERS Encounter Location Date Diagnosis [facility] [id number] [place] [address] 82691- [phone] Dec, [facility] [id number] [place] [address] 71298- 1495 Dec, [facility] [id number] [place] [address] 16825- 9798 Dec, [facility] [id number] [place] [address] 42428- 4896 Nov, [facility] [id number] [place] [address] 98187- 3250 Nov, Essential hypertension I10 [facility] [id number] [place] [address] 17948- 3142 Oct, [facility] [id number] [place] [address] 76145- 3323 Oct, [facility] [id number] [place] [address] 12246- 0388 Sep, [facility] [id number] [place] [address] 26142- 7296 Aug, Lumbago with sciatica, right side M54.41 [place] [id number] [place] [address] 01286- 7317 Aug, Lumbago with sciatica, right side M54.41 ; Essential hypertension I10 ; Screening for diabetes mellitus Z13.1 ; Screening for cholesterol level Z13.220 and Other chronic pain G89.29 [place] [id number] [place] [address] 04072- 6657 Aug, [place] [id number] [place] [address] 77260- 2183 Aug, Lumbago with sciatica, right side M54.41 [place] [id number] [place] [address] 33485- 0249 July, Lumbago with sciatica, right side M54.41 [place] [id number] [place] [address] 91089- 9430 Jun, Lumbago with sciatica, right side M54.41 [place] [id number] [place] [address] 11389- 3222 Jun, Lumbago with sciatica, right side M54.41 [place] [id number] [place] [address] 75121- 4323 May, Lumbago with sciatica, right side M54.41 [place] [id number] [place] [address] 30246- 3890 Apr, Lumbago with sciatica, right side M54.41 [place] [id number] [place] [address] 18069- 9333 Mar, Lumbago with sciatica, right side M54.41 [place] [id number] [place] [address] 68247- 4248 Mar, Lumbago with sciatica, right side M54.41 [place] [id number] [place] [address]- 0024 Mar, [facility] [id number] [place] [address] 98404- 0651 Mar, Essential hypertension I10 ; Lumbago with sciatica, right side M54.41 and Other chronic pain G89.29 [facility] [id number] [address]- 9786 Feb, [place] [id number] [place] [address] 85452- 2552 Aug, Essential hypertension I10 [place] [id number] [place] [address] 72607- 1598 July, Essential hypertension I10 [place] [id number] [place] [address] 17647- 1928 July, Essential hypertension I10 [place] [id number] [place] [address] 63708- 3613 July, Essential hypertension I10 [place] [id number], [place] [address]- 3771 Jun, Essential hypertension I10 [place] [id number], [place] [address]- 1483 Jun, Essential hypertension I10 [place] [id number] [place] [address]- 0504 Jun, Essential hypertension I10 and Coronary artery disease involving havasupai coronary artery of havasupai heart without angina pectoris I25.10 [facility] [id number] [place] [address]- 9851 May, IMMUNIZATIONS No Known Immunizations SOCIAL HISTORY Never Assessed REASON FOR VISIT reschedule PT appt PLAN OF CARE VITAL SIGNS MEDICATIONS Unknown Medications RESULTS No Results PROCEDURES No Known procedures INSTRUCTIONS MEDICATIONS ADMINISTERED No Known Medications MEDICAL (GENERAL) HISTORY Type Description Date Medical History hypertension: Nml Echo and Renal US 05/2016 during hospitalization Medical History anxiety since passing of (feb 2016) Hospitalization History Hypertension. 1 night stay. 05/2016
--- OUTSIDE RECORDS SUMMARY | 2018-05-02 09:08 | XMS REPORT ---
Author Author RINKU ALFARO Organization [facility] Address [address] [place] [address] Care Team Providers Care Level Glass Vial Filler Name Role Phone RINKU ALFARO Unavailable PROBLEMS Type Condition ICD9-CM Code MCP81-RK Code Onset Dates Condition Status SNOMED Code Problem Other chronic pain G89.29 Active 05040709 Problem Lumbago with sciatica, right side M54.41 Active 798176513 Problem Essential hypertension I10 Active 26557539 Problem Coronary artery disease involving [place] coronary artery of [place] heart without angina pectoris I25.10 Active [id number] ALLERGIES No Information ENCOUNTERS Encounter Location Date Diagnosis [facility] [id number] [place] [address] 38226- 1742 Dec, [facility] [id number] [place] [address] 87534- 2348 Dec, Essential hypertension I10 ; Lumbago with sciatica, right side M54.41 ; Other chronic pain G89.29 and Coronary artery disease involving [place] coronary artery of [place] heart without angina pectoris I25.10 [facility] [address] [address] 8797 Dec, [facility] [id number] [place] [address] 52136- 1417 Nov, [facility] [id number] [place] [address] 98552- 5957 Nov, Essential hypertension I10 [facility] [id number] [place] [address] 36310- 1192 Oct, [facility] [address] [address] 6399 Oct, [facility] [id number] [place] [address] 65918- 7297 Sep, Lumbago with sciatica, right side M54.41 [place] [id number] [place] [address] 77781- 1475 Aug, Lumbago with sciatica, right side M54.41 [place] [id number] [place] [address] 61335- 0464 Aug, Lumbago with sciatica, right side M54.41 ; Essential hypertension I10 ; Screening for diabetes mellitus Z13.1 ; Screening for cholesterol level Z13.220 and Other chronic pain G89.29 [place] [address] 41784- 0197 Aug, [place] [id number] [place] [address] 48489- 0862 Aug, Lumbago with sciatica, right side M54.41 [place] [id number] [place] [address] 24836- 3470 July, Lumbago with sciatica, right side M54.41 [place] [id number] [place] [address] 88301- 2625 Jun, Lumbago with sciatica, right side M54.41 [place] [id number] [place] [address] 60252- 7186 Jun, Lumbago with sciatica, right side M54.41 [place] [id number] [place] [address] 77820- 5993 May, Lumbago with sciatica, right side M54.41 [place] [id number] [place] [address] 156034- 9776 Apr, Lumbago with sciatica, right side M54.41 [place] [id number] [place] [address] 03602- 0236 Mar, Lumbago with sciatica, right side M54.41 [facility] [address] [address] 6800 Mar, Lumbago with sciatica, right side M54.41 [facility] [id number] [place] [address] 39353- 2831 Mar, [facility] [id number] [place] [address] 21322- 8830 Mar, Essential hypertension I10 ; Lumbago with sciatica, right side M54.41 and Other chronic pain G89.29 [facility] [id number] [address] 6057 Feb, [facility] [id number] [place] [address] 36605- 2937 Aug, Essential hypertension I10 [facility] [id number] [place] [address] 11679- 6855 July, Essential hypertension I10 [facility] [id number] [place] [address] 38202- 1712 July, Essential hypertension I10 [facility] [id number] [place] [address] 73750- 6006 July, Essential hypertension I10 [facility] [address], [place] [address] 9569 Jun, Essential hypertension I10 [facility] [id number] [place] [address] 69385- 7142 Jun, Essential hypertension I10 [facility] [address] [place] [address] 89779- 2372 Jun, Essential hypertension I10 and Coronary artery disease involving [place] coronary artery of [place] heart without angina pectoris I25.10 [facility] [address], [place] [address] 3239 May, IMMUNIZATIONS No Known Immunizations SOCIAL HISTORY Never Assessed REASON FOR VISIT PT follow-up PLAN OF CARE Activity Details Follow Up 3 Weeks Reason:F/U PT VITAL SIGNS MEDICATIONS Unknown Medications RESULTS No Results PROCEDURES Procedure Date Ordered Result Body Site THERAPEUTIC EXERCISES September 29, 2017 INSTRUCTIONS MEDICATIONS ADMINISTERED No Known Medications MEDICAL (GENERAL) HISTORY Type Description Date Medical History hypertension: Nml Echo and Renal US 05/2016 during hospitalization Medical History anxiety since passing of (feb 2016) Surgical History No know Surgical history Hospitalization History Hypertension. 1 night stay. 05/2016
--- OUTSIDE RECORDS SUMMARY | 2018-05-02 09:08 | XMS REPORT ---
Author Author RINKU ALFARO Organization [facility] Address [address] [place] [address] Care Team Providers Care Leaf Blender Name Role Phone RINKU ALFARO Unavailable PROBLEMS Type Condition ICD9-CM Code IEQ70-BM Code Onset Dates Condition Status SNOMED Code Problem Other chronic pain G89.29 Active 39342896 Problem Lumbago with sciatica, right side M54.41 Active 542505272 Problem Essential hypertension I10 Active 14851887 Problem Coronary artery disease involving [place] coronary artery of [place] heart without angina pectoris I25.10 Active [id number] ALLERGIES No Information ENCOUNTERS Encounter Location Date Diagnosis [place] [id number] [place] [address] 64513- 2228 Jan, [place] [id number] [place] [address] 69764- 0837 Jan, Lumbago with sciatica, right side M54.41 [place] [id number] [place] [address] 52581- 3228 Dec, Essential hypertension I10 ; Lumbago with sciatica, right side M54.41 ; Other chronic pain G89.29 and Coronary artery disease involving [place] coronary artery of [place] heart without angina pectoris I25.10 [facility] [id number] [place] [address] 02595- 0386 Dec, [facility] [id number] [place] [address] 07507- 1115 Nov, Lumbago with sciatica, right side M54.41 [place] [id number] [place] [address] 81563- 4781 Nov, Essential hypertension I10 [place] [id number] [place] [address] 86762- 0616 Oct, Lumbago with sciatica, right side M54.41 [place] [id number] [place] [address] 64033- 4963 Oct, Lumbago with sciatica, right side M54.41 [place] [id number] [place] [address] 16782- 2361 Sep, Lumbago with sciatica, right side M54.41 [place] [address] [place] [address] 94584- 2121 Aug, Lumbago with sciatica, right side M54.41 [place] [address] [place] [address] 79503- 5494 Aug, Lumbago with sciatica, right side M54.41 ; Essential hypertension I10 ; Screening for diabetes mellitus Z13.1 ; Screening for cholesterol level Z13.220 and Other chronic pain G89.29 [place] [id number] [place] [address] 53791- 5033 Aug, [place] [id number] [place] [address] 92933- 8319 Aug, Lumbago with sciatica, right side M54.41 [place] [address] [place] [address] 24636- 4746 July, Lumbago with sciatica, right side M54.41 [place] [address] [place] [address] 41170- 1563 Jun, Lumbago with sciatica, right side M54.41 [place] [address] [place] [address] 00687- 0345 Jun, Lumbago with sciatica, right side M54.41 [place] [id number] [place] [address] 97680- 6168 May, Lumbago with sciatica, right side M54.41 [place] [address], [place] [address]- 0236 Apr, Lumbago with sciatica, right side M54.41 [facility] [id number] [place] [address] 14821- 5864 Mar, Lumbago with sciatica, right side M54.41 [facility] [id number] [place] [address] 95770- 0594 Mar, Lumbago with sciatica, right side M54.41 [facility] [id number] [place] [address] 90931- 3991 Mar, [facility] [id number] [place] [address] 12400- 8684 Mar, Essential hypertension I10 ; Lumbago with sciatica, right side M54.41 and Other chronic pain G89.29 [facility] [id number] [place] [address] 43355- 0865 Feb, [facility] [id number] [place] [address] 66414- 8519 Aug, Essential hypertension I10 [facility] [id number] [place] [address] 38161- 4082 July, Essential hypertension I10 [facility] [id number] [place] [address] 03345- 3132 July, Essential hypertension I10 [facility] [id number] [place] [address] 31340- 8535 July, Essential hypertension I10 [facility] [id number] [place] [address] 68335- 8808 Jun, Essential hypertension I10 [facility] [id number] [place] [address] 65582- 3980 Jun, Essential hypertension I10 [facility] [id number] [place] [address] 67658- 7669 Jun, Essential hypertension I10 and Coronary artery disease involving [place] coronary artery of [place] heart without angina pectoris I25.10 [facility] [address] [facility] [id number] [place] [address]- 3255 May, IMMUNIZATIONS No Known Immunizations SOCIAL HISTORY Never Assessed REASON FOR VISIT PLAN OF CARE Activity Details Follow Up 3 Weeks Reason:F/U PT VITAL SIGNS MEDICATIONS Unknown Medications RESULTS No Results PROCEDURES Procedure Date Ordered Result Body Site THERAPEUTIC EXERCISES Jan 31, 2018 INSTRUCTIONS MEDICATIONS ADMINISTERED No Known Medications MEDICAL (GENERAL) HISTORY Type Description Date Medical History hypertension: Nml Echo and Renal US 05/2016 during hospitalization Medical History anxiety since passing of (feb 2016) Surgical History No know Surgical history Hospitalization History Hypertension. 1 night stay. 05/2016
--- OUTSIDE RECORDS SUMMARY | 2018-05-02 09:09 | XMS REPORT ---
Author Author MAHAD CASTILLO [facility] Address [address] [place] [address] Care Team Providers Care Show Card Writer Name Role Phone MAHAD CASTILLO Unavailable PROBLEMS Type Condition ICD9-CM Code KUC35-WL Code Onset Dates Condition Status SNOMED Code Problem Other chronic pain G89.29 Active 50608296 Problem Lumbago with sciatica, right side M54.41 Active 261587155 Problem Essential hypertension I10 Active 34661192 Problem Coronary artery disease involving [place] coronary artery of [place] heart without angina pectoris I25.10 Active [id number] ALLERGIES No Information ENCOUNTERS Encounter Location Date Diagnosis [place] [id number] [place] [address] 44301- 9211 Nov, [facility] [id number] [place] [address] 59792- 3854 Oct, [facility] [id number] [place] [address] 06051- 4301 Oct, [facility] [id number] [place] [address] 82258- 3188 Sep, [facility] [id number] [place] [address] 29021- 3786 Aug, [facility] [id number] [place] [address] 06974- 6806 Aug, Lumbago with sciatica, right side M54.41 ; Essential hypertension I10 ; Screening for diabetes mellitus Z13.1 ; Screening for cholesterol level Z13.220 and Other chronic pain G89.29 [facility] [id number] [place] [address] 76287- 2017 Aug, [facility] [address] [place] [address]- 5144 Aug, Lumbago with sciatica, right side M54.41 [facility] [id number] [place] [address] 31871- 0630 July, Lumbago with sciatica, right side M54.41 [facility] [id number] [place] [address] 05689- 5656 Jun, Lumbago with sciatica, right side M54.41 [facility] [id number] [place] [address] 43729- 7416 Jun, Lumbago with sciatica, right side M54.41 [facility] [id number] [place] [address] 05217- 9427 May, Lumbago with sciatica, right side M54.41 [facility] [id number] [place] [address] 23061- 0812 Apr, Lumbago with sciatica, right side M54.41 [facility] [id number] [place] [address] 20958- 7711 Mar, Lumbago with sciatica, right side M54.41 [facility] [id number] [place] [address] 54822- 0652 Mar, Lumbago with sciatica, right side M54.41 [facility] [id number] [place] [address] 01618- 3999 Mar, [facility] [id number] [place] [address] 32273- 4096 Mar, Essential hypertension I10 ; Lumbago with sciatica, right side M54.41 and Other chronic pain G89.29 [facility] [id number] [place] [address] 69841- 0421 Feb, [facility] [id number] [place] [address] 17445- 9495 Aug, Essential hypertension I10 [facility] [address] [address]- 5056 July, Essential hypertension I10 [facility] [address] 2819 July, Essential hypertension I10 [facility] [address] [address]- 3662 July, Essential hypertension I10 [facility] [address] [address]- 4857 Jun, Essential hypertension I10 [facility] [id number] [place] [address] 11854- 9614 Jun, Essential hypertension I10 [facility] [address] [address]- 2729 Jun, Essential hypertension I10 and Coronary artery disease involving [place] coronary artery of [place] heart without angina pectoris I25.10 [facility] [address] [address]- 6408 May, IMMUNIZATIONS No Known Immunizations SOCIAL HISTORY Never Assessed REASON FOR VISIT Back pain concerns PLAN OF CARE VITAL SIGNS MEDICATIONS Unknown Medications RESULTS No Results PROCEDURES No Known procedures INSTRUCTIONS MEDICATIONS ADMINISTERED No Known Medications MEDICAL (GENERAL) HISTORY Type Description Date Medical History hypertension: Nml Echo and Renal US 05/2016 during hospitalization Medical History anxiety since passing of (feb 2016) Hospitalization History Hypertension. 1 night stay. 05/2016
--- OUTSIDE RECORDS SUMMARY | 2018-05-02 09:09 | XMS REPORT ---
Author Author RINKU ALFARO [facility] Address [address] [place] [address] Care Team Providers Care Hearth Feeder Name Role Phone RINKU ALFARO Unavailable PROBLEMS Type Condition ICD9-CM Code WGU15-LT Code Onset Dates Condition Status SNOMED Code Problem Other chronic pain G89.29 Active 56384445 Problem Lumbago with sciatica, right side M54.41 Active 215039917 Problem Essential hypertension I10 Active 61245096 Problem Coronary artery disease involving [place] coronary artery of [place] heart without angina pectoris I25.10 Active [id number] ALLERGIES No Information ENCOUNTERS Encounter Location Date Diagnosis [place] [id number] [place] [address] 11032- 1627 Dec, [facility] [id number] [place] [address] 92135- 5104 Nov, [facility] [id number] [place] [address] 89841- 5746 Oct, [facility] [id number] [place] [address] 26088- 3421 Oct, [facility] [id number] [place] [address] 28189- 3888 Sep, [facility] [id number] [place] [address] 87344- 2931 Aug, [facility] [address] 69538- 5869 Aug, Lumbago with sciatica, right side M54.41 ; Essential hypertension I10 ; Screening for diabetes mellitus Z13.1 ; Screening for cholesterol level Z13.220 and Other chronic pain G89.29 [facility] [address] [place] [address]- 0930 Aug, [facility] [id number] [place] [address] 73269- 5490 Aug, Lumbago with sciatica, right side M54.41 [facility] [id number] [place] [address] 88193- 3524 July, Lumbago with sciatica, right side M54.41 [facility] [id number] [place] [address] 82337- 6367 Jun, Lumbago with sciatica, right side M54.41 [facility] [address] 50512- 1016 Jun, Lumbago with sciatica, right side M54.41 [facility] [id number] [place] [address] 77121- 7591 May, Lumbago with sciatica, right side M54.41 [facility] [id number] [place] [address] 40879- 7314 Apr, Lumbago with sciatica, right side M54.41 [facility] [id number] [place] [address] 62544- 0061 Mar, Lumbago with sciatica, right side M54.41 [facility] [id number] [place] [address] 20530- 4923 Mar, Lumbago with sciatica, right side M54.41 [facility] [id number] [place] [address] 33505- 9475 Mar, [facility] [id number] [place] [address] 99908- 4039 Mar, Essential hypertension I10 ; Lumbago with sciatica, right side M54.41 and Other chronic pain G89.29 [facility] [id number] [place] [address] 32855- 7796 Feb, [facility] [id number] [address]- 0891 Aug, Essential hypertension I10 [facility] [address]- 1317 July, Essential hypertension I10 [facility] [address] [address]- 7072 July, Essential hypertension I10 [facility] [address] 9085 July, Essential hypertension I10 [place] [id number] 0427 Jun, Essential hypertension I10 [facility] [address] [address]- 9108 Jun, Essential hypertension I10 [facility] [address] [address]- 4902 Jun, Essential hypertension I10 and Coronary artery disease involving [place] coronary artery of [place] heart without angina pectoris I25.10 [facility] [address] [address]- 6876 May, IMMUNIZATIONS No Known Immunizations SOCIAL HISTORY Never Assessed REASON FOR VISIT PT follow-up PLAN OF CARE Activity Details Follow Up 3 Weeks Reason:F/U PT VITAL SIGNS MEDICATIONS Unknown Medications RESULTS No Results PROCEDURES Procedure Date Ordered Result Body Site THERAPEUTIC EXERCISES June 21, 2017 INSTRUCTIONS MEDICATIONS ADMINISTERED No Known Medications MEDICAL (GENERAL) HISTORY Type Description Date Medical History hypertension: Nml Echo and Renal US 05/2016 during hospitalization Medical History anxiety since passing of (feb 2016) Hospitalization History Hypertension. 1 night stay. 05/2016
--- OUTSIDE RECORDS SUMMARY | 2018-05-02 09:09 | XMS REPORT ---
Author Author RINKU ALFARO [facility] Address [address] [place] [address] Care Team Providers Care Deckhand Oyster Dredge Name Role Phone RINKU ALFARO Unavailable PROBLEMS Type Condition ICD9-CM Code LBP34-ST Code Onset Dates Condition Status SNOMED Code Problem Other chronic pain G89.29 Active 89640869 Problem Lumbago with sciatica, right side M54.41 Active 228341240 Problem Essential hypertension I10 Active 67084936 Problem Coronary artery disease 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 angina pectoris I25.10 Active [id number] ALLERGIES No Information ENCOUNTERS Encounter Location Date Diagnosis [place] [id number] [place] [address] 88225- 8174 Oct, [place] [id number] [place] [address] 70610- 7381 Sep, [place] [id number] [place] [address] 11272- 2178 Aug, [place] [id number] [place] [address] 35284- 5574 Aug, Lumbago with sciatica, right side M54.41 ; Essential hypertension I10 ; Screening for diabetes mellitus Z13.1 ; Screening for cholesterol level Z13.220 and Other chronic pain G89.29 [facility] [id number] [place] [address] 98121- 4874 Aug, [facility] [id number] [place] [address] 39214- 8664 Aug, Lumbago with sciatica, right side M54.41 [place] [id number] [place] [address] 23064- 6494 July, Lumbago with sciatica, right side M54.41 [facility] [id number] [address] 6928 Jun, Lumbago with sciatica, right side M54.41 [facility] [id number] [place] [address] 81766- 1396 Jun, Lumbago with sciatica, right side M54.41 [facility] [id number] [place] [address] 18386- 1837 May, Lumbago with sciatica, right side M54.41 [facility] [id number] [place] [address] 82040- 9841 Apr, Lumbago with sciatica, right side M54.41 [facility] [id number] [place] [address] 30342- 7918 Mar, Lumbago with sciatica, right side M54.41 [facility] [id number] [place] [address] 55565- 3150 Mar, Lumbago with sciatica, right side M54.41 [facility] [id number] [place] [address] 15177- 1071 Mar, [facility] [id number] [place] [address] 59878- 0501 Mar, Essential hypertension I10 ; Lumbago with sciatica, right side M54.41 and Other chronic pain G89.29 [facility] [id number] [place] [address] 15446- 8322 Feb, [facility] [id number] [place] [address] 98237- 5569 Aug, Essential hypertension I10 [facility] [id number] [place] [address] 80839- 9558 July, Essential hypertension I10 [facility] [id number] [place] [address] 15270- 8040 July, Essential hypertension I10 [facility] [id number] [address]- 4945 July, Essential hypertension I10 [facility] [id number] [address]- 0892 Jun, Essential hypertension I10 [facility] [id number] [address]- 5232 Jun, Essential hypertension I10 [facility] [address] 5194 Jun, Essential hypertension I10 and Coronary artery disease 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 angina pectoris I25.10 [facility] [id number] 9031 May, IMMUNIZATIONS No Known Immunizations SOCIAL HISTORY Never Assessed REASON FOR VISIT PT follow-up PLAN OF CARE Activity Details Follow Up 3 Weeks Reason:F/U PT VITAL SIGNS MEDICATIONS Unknown Medications RESULTS No Results PROCEDURES Procedure Date Ordered Result Body Site THERAPEUTIC EXERCISES Apr 12, 2017 INSTRUCTIONS MEDICATIONS ADMINISTERED No Known Medications MEDICAL (GENERAL) HISTORY Type Description Date Medical History hypertension: Nml Echo and Renal US 05/2016 during hospitalization Medical History anxiety since passing of (feb 2016) Hospitalization History Hypertension. 1 night stay. 05/2016
--- OUTSIDE RECORDS SUMMARY | 2018-05-02 09:09 | XMS REPORT ---
Author Author RINKU ALFARO [facility] Address [address] [place] [address] Care Team Providers Care Material Handler Floorperson Name Role Phone RINKU ALFARO Unavailable PROBLEMS Type Condition ICD9-CM Code MSF64-GM Code Onset Dates Condition Status SNOMED Code Problem Other chronic pain G89.29 Active 86292867 Problem Lumbago with sciatica, right side M54.41 Active 413349099 Problem Essential hypertension I10 Active 33058803 Problem Coronary artery disease involving knik coronary artery of knik heart without angina pectoris I25.10 Active [id number] ALLERGIES No Information ENCOUNTERS Encounter Location Date Diagnosis [facility] [id number] [place] [address] 16503- 8264 Dec, [facility] [id number] [place] [address] 36522- 2403 Dec, [facility] [id number] [place] [address] 45974- 5698 Dec, [facility] [id number] [place] [address] 86048- 0539 Nov, [facility] [id number] [place] [address] 06210- 7376 Nov, Essential hypertension I10 [facility] [id number] [place] [address] 32347- 9253 Oct, [facility] [id number] [place] [address] 04847- 4485 Oct, [facility] [id number] [place] [address] 19430- 7294 Sep, [facility] [id number] [place] [address] 83731- 4694 Aug, Lumbago with sciatica, right side M54.41 [place] [id number] [place] [address] 54786- 0040 Aug, Lumbago with sciatica, right side M54.41 ; Essential hypertension I10 ; Screening for diabetes mellitus Z13.1 ; Screening for cholesterol level Z13.220 and Other chronic pain G89.29 [place] [id number] [place] [address] 85581- 8101 Aug, [place] [id number] [place] [address] 71064- 2873 Aug, Lumbago with sciatica, right side M54.41 [place] [id number] [place] [address] 77925- 4782 July, Lumbago with sciatica, right side M54.41 [place] [id number] [place] [address] 08801- 1159 Jun, Lumbago with sciatica, right side M54.41 [place] [id number] [place] [address] 80490- 4060 Jun, Lumbago with sciatica, right side M54.41 [place] [id number] [place] [address] 22383- 8875 May, Lumbago with sciatica, right side M54.41 [place] [id number] [place] [address] 83595- 4698 Apr, Lumbago with sciatica, right side M54.41 [place] [id number] [place] [address] 36925- 9293 Mar, Lumbago with sciatica, right side M54.41 [place] [id number] [place] [address] 97707- 4086 Mar, Lumbago with sciatica, right side M54.41 [place] [address], [place] [address]- 4639 Mar, [facility] [id number] [place] [address] 02114- 3066 Mar, Essential hypertension I10 ; Lumbago with sciatica, right side M54.41 and Other chronic pain G89.29 [facility] [id number] [place] [address] 11259- 8557 Feb, [place] [id number] [place] [address] 64739- 4415 Aug, Essential hypertension I10 [place] [id number] [place] [address] 76910- 2538 July, Essential hypertension I10 [place] [id number] [place] [address] 13331- 1864 July, Essential hypertension I10 [place] [id number] [place] [address] 40614- 8345 July, Essential hypertension I10 [place] [id number] [place] [address] 06929- 9468 Jun, Essential hypertension I10 [place] [id number] [place] [address] 87110- 1256 Jun, Essential hypertension I10 [place] [address], [place] [address]- 0081 Jun, Essential hypertension I10 and Coronary artery disease involving knik coronary artery of knik heart without angina pectoris I25.10 [place] [address], [place] [address]- 1397 May, IMMUNIZATIONS No Known Immunizations SOCIAL HISTORY Never Assessed REASON FOR VISIT PT follow-up PLAN OF CARE Activity Details Follow Up 2 Weeks Reason:F/U PT VITAL SIGNS MEDICATIONS Unknown Medications RESULTS No Results PROCEDURES Procedure Date Ordered Result Body Site THERAPEUTIC EXERCISES August 30, 2017 INSTRUCTIONS MEDICATIONS ADMINISTERED No Known Medications MEDICAL (GENERAL) HISTORY Type Description Date Medical History hypertension: Nml Echo and Renal US 05/2016 during hospitalization Medical History anxiety since passing of (feb 2016) Hospitalization History Hypertension. 1 night stay. 05/2016
--- OUTSIDE RECORDS SUMMARY | 2018-05-02 09:09 | XMS REPORT ---
Author Author RINKU ALFARO [facility] Address [address] [place] [address] Care Team Providers Care Senior Teradata Developer Name Role Phone RINKU ALFARO Unavailable PROBLEMS Type Condition ICD9-CM Code PWU92-XB Code Onset Dates Condition Status SNOMED Code Problem Other chronic pain G89.29 Active 15086644 Problem Lumbago with sciatica, right side M54.41 Active 548742143 Problem Essential hypertension I10 Active 74565712 Problem Coronary artery disease involving kashia coronary artery of kashia heart without angina pectoris I25.10 Active [id number] ALLERGIES No Information ENCOUNTERS Encounter Location Date Diagnosis [facility] [id number] [place] [address] 71120- 2906 Nov, [facility] [id number] [place] [address] 11534- 9558 Oct, [facility] [id number] [place] [address] 47691- 8364 Oct, [facility] [id number] [place] [address] 73306- 4528 Sep, [facility] [id number] [place] [address] 62023- 4450 Aug, [facility] [id number] [place] [address] 90833- 8405 Aug, Lumbago with sciatica, right side M54.41 ; Essential hypertension I10 ; Screening for diabetes mellitus Z13.1 ; Screening for cholesterol level Z13.220 and Other chronic pain G89.29 [facility] [id number] [place] [address] 35177- 0505 Aug, [facility] [address] [place] [address]- 1538 Aug, Lumbago with sciatica, right side M54.41 [facility] [id number] [place] [address] 71267- 3490 July, Lumbago with sciatica, right side M54.41 [facility] [id number] [place] [address] 24358- 4626 Jun, Lumbago with sciatica, right side M54.41 [facility] [id number] [place] [address] 43519- 9692 Jun, Lumbago with sciatica, right side M54.41 [facility] [id number] [place] [address] 77288- 8000 May, Lumbago with sciatica, right side M54.41 [facility] [id number] [place] [address] 64079- 2304 Apr, Lumbago with sciatica, right side M54.41 [facility] [id number] [place] [address] 97498- 3055 Mar, Lumbago with sciatica, right side M54.41 [facility] [id number] [place] [address] 64590- 6164 Mar, Lumbago with sciatica, right side M54.41 [facility] [id number] [place] [address] 46757- 7572 Mar, [facility] [id number] [place] [address] 76949- 3395 Mar, Essential hypertension I10 ; Lumbago with sciatica, right side M54.41 and Other chronic pain G89.29 [facility] [id number] [place] [address] 59503- 7892 Feb, [facility] [id number] [place] [address] 05455- 8223 Aug, Essential hypertension I10 [facility] [address], [place] [address]- 5962 July, Essential hypertension I10 [facility] [address] 5466 July, Essential hypertension I10 [facility] [address], [place] [address]- 5403 July, Essential hypertension I10 [facility] [address], [place] [address]- 3351 Jun, Essential hypertension I10 [facility] [address], [place] [address]- 9640 Jun, Essential hypertension I10 [facility] [address], [place] [address]- 8264 Jun, Essential hypertension I10 and Coronary artery disease involving kashia coronary artery of kashia heart without angina pectoris I25.10 [facility] [address], [place] [address]- 5741 May, IMMUNIZATIONS No Known Immunizations SOCIAL HISTORY Never Assessed REASON FOR VISIT PT follow-up PLAN OF CARE Activity Details Follow Up 2 Weeks Reason:F/U PT VITAL SIGNS MEDICATIONS Unknown Medications RESULTS No Results PROCEDURES Procedure Date Ordered Result Body Site THERAPEUTIC EXERCISES August 04, 2017 INSTRUCTIONS MEDICATIONS ADMINISTERED No Known Medications MEDICAL (GENERAL) HISTORY Type Description Date Medical History hypertension: Nml Echo and Renal US 05/2016 during hospitalization Medical History anxiety since passing of (feb 2016) Hospitalization History Hypertension. 1 night stay. 05/2016
--- OUTSIDE RECORDS SUMMARY | 2018-05-02 09:09 | XMS REPORT ---
Author Author RINKU ALFARO [facility] Address [address] [place] [address] Care Team Providers Care Board Certified Family Physician Name Role Phone RINKU ALFARO Unavailable PROBLEMS Type Condition ICD9-CM Code NDU39-MN Code Onset Dates Condition Status SNOMED Code Problem Other chronic pain G89.29 Active 69741944 Problem Lumbago with sciatica, right side M54.41 Active 267106066 Problem Essential hypertension I10 Active 75154142 Problem Coronary artery disease involving [place] si[place] coronary artery of assin[place] and sioux heart without angina pectoris I25.10 Active 2612423305254 ALLERGIES No Information ENCOUNTERS Encounter Location Date Diagnosis [place] [id number] [place] [address] 52765- 0401 Oct, [place] [id number] [place] [address] 76593- 5896 Sep, [place] [id number] [place] [address] 75200- 6700 Aug, [place] [id number] [place] [address] 38678- 8361 Aug, Lumbago with sciatica, right side M54.41 ; Essential hypertension I10 ; Screening for diabetes mellitus Z13.1 ; Screening for cholesterol level Z13.220 and Other chronic pain G89.29 [facility] [id number] [place] [address] 33018- 6840 Aug, [facility] [id number] [place] [address] 57257- 5662 Aug, Lumbago with sciatica, right side M54.41 [place] [id number] [place] [address] 06624- 4677 July, Lumbago with sciatica, right side M54.41 [facility] [id number] [address]- 6288 Jun, Lumbago with sciatica, right side M54.41 [facility] [id number] [place] [address] 15869- 0736 Jun, Lumbago with sciatica, right side M54.41 [facility] [id number] [place] [address] 83416- 5337 May, Lumbago with sciatica, right side M54.41 [facility] [id number] [place] [address] 90218- 3890 Apr, Lumbago with sciatica, right side M54.41 [facility] [id number] [place] [address] 77728- 3728 Mar, Lumbago with sciatica, right side M54.41 [facility] [id number] [place] [address] 33366- 8676 Mar, Lumbago with sciatica, right side M54.41 [facility] [id number] [place] [address] 33080- 4202 Mar, [facility] [id number] [place] [address] 68487- 6784 Mar, Essential hypertension I10 ; Lumbago with sciatica, right side M54.41 and Other chronic pain G89.29 [facility] [id number] [place] [address] 24080- 4336 Feb, [facility] [id number] [place] [address] 52380- 8534 Aug, Essential hypertension I10 [facility] [id number] [place] [address] 94120- 8076 July, Essential hypertension I10 [facility] [id number] [place] [address] 73279- 4330 July, Essential hypertension I10 [facility] [id number] [address]- 1090 July, Essential hypertension I10 [facility] [id number] [address]- 4027 Jun, Essential hypertension I10 [facility] [id number] [address]- 9357 Jun, Essential hypertension I10 [facility] [address] 9191 Jun, Essential hypertension I10 and Coronary artery disease involving assinibo[place] and sioux coronary artery of assinibo[place] and sioux heart without angina pectoris I25.10 [facility] [id number] [place]- 6925 May, IMMUNIZATIONS No Known Immunizations SOCIAL HISTORY Never Assessed REASON FOR VISIT PT follow-up PLAN OF CARE Activity Details Follow Up 3 Weeks Reason:F/U PT VITAL SIGNS MEDICATIONS Unknown Medications RESULTS No Results PROCEDURES Procedure Date Ordered Result Body Site THERAPEUTIC EXERCISES July 14, 2017 INSTRUCTIONS MEDICATIONS ADMINISTERED No Known Medications MEDICAL (GENERAL) HISTORY Type Description Date Medical History hypertension: Nml Echo and Renal US 05/2016 during hospitalization Medical History anxiety since passing of (feb 2016) Hospitalization History Hypertension. 1 night stay. 05/2016
--- OUTSIDE RECORDS SUMMARY | 2018-05-02 09:09 | XMS REPORT ---
Author Author MAHAD CASTILLO [facility] Address [address] [place] [address] Care Team Providers Care Clerical Secretary Name Role Phone MAHAD CASTILLO Unavailable PROBLEMS Type Condition ICD9-CM Code WKQ83-SD Code Onset Dates Condition Status SNOMED Code Problem Other chronic pain G89.29 Active 79777268 Problem Lumbago with sciatica, right side M54.41 Active 659028950 Problem Essential hypertension I10 Active 39162902 Problem Coronary artery disease involving [place] coronary artery of [place] heart without angina pectoris I25.10 Active 8292498923128 ALLERGIES No Information ENCOUNTERS Encounter Location Date Diagnosis [place] [id number] [place] [address] 31113- 5823 Aug, [place] [id number] [place] [address] 38196- 0486 Aug, Lumbago with sciatica, right side M54.41 ; Essential hypertension I10 ; Screening for diabetes mellitus Z13.1 ; Screening for cholesterol level Z13.220 and Other chronic pain G89.29 [place] [id number] [place] [address] 68605- 1598 Aug, [place] [id number] [place] [address] 77912- 0537 Aug, Lumbago with sciatica, right side M54.41 [place] [address] 86652- 2981 July, Lumbago with sciatica, right side M54.41 [place] [id number] [place] [address] 77773- 0490 Jun, Lumbago with sciatica, right side M54.41 [place] [address], [place] [address]- 5331 Jun, [facility] [id number] [place] [address] 17482- 0561 May, Lumbago with sciatica, right side M54.41 [facility] [id number] [place] [address] 59997- 4200 Apr, Lumbago with sciatica, right side M54.41 [facility] [id number] [place] [address] 800589- 9012 Mar, Lumbago with sciatica, right side M54.41 [place] [id number] [place] [address] 16699- 7546 Mar, Lumbago with sciatica, right side M54.41 [place] [id number] [place] [address] 02066- 0397 Mar, [facility] [id number] [place] [address] 48841- 9462 Mar, Essential hypertension I10 ; Lumbago with sciatica, right side M54.41 and Other chronic pain G89.29 [place] [address], [place] [address]- 0959 Feb, [place] [address], [place] [address]- 0448 Aug, Essential hypertension I10 [facility] [id number], [place] [address]- 1064 July, Essential hypertension I10 [facility] [id number] [place] [address] 86775- 4926 July, Essential hypertension I10 [facility] [address] [place] [address] 63702- 5377 July, Essential hypertension I10 [facility] [id number] [place] [address] 94481- 6862 Jun, Essential hypertension I10 [facility] [address] [facility] [id number] [place] [address] Jun, Essential hypertension I10 [facility] [address] [facility] [id number] [address] Jun, Essential hypertension I10 and Coronary artery disease involving [place] coronary artery of [place] heart without angina pectoris I25.[address] [place] [address] [facility] [id number] [phone] May, IMMUNIZATIONS No Known Immunizations SOCIAL HISTORY Never Assessed REASON FOR VISIT refill request PLAN OF CARE VITAL SIGNS MEDICATIONS Medication Instructions Dosage Frequency Start Date End Date Duration Status Lisinopril 20 mg Orally Once a day 1 tablet 24h Active RESULTS No Results PROCEDURES No Known procedures INSTRUCTIONS MEDICATIONS ADMINISTERED No Known Medications MEDICAL (GENERAL) HISTORY Type Description Date Medical History hypertension: Nml Echo and Renal US 05/2016 during hospitalization Medical History anxiety since passing of (feb 2016) Hospitalization History Hypertension. 1 night stay. 05/2016
--- OUTSIDE RECORDS SUMMARY | 2018-05-02 09:09 | XMS REPORT ---
Author Author RINKU ALFARO [facility] Address [address] [place] [address] Care Team Providers Care Head Cleaning Porter Name Role Phone RINKU ALFARO Unavailable PROBLEMS Type Condition ICD9-CM Code WWB28-UM Code Onset Dates Condition Status SNOMED Code Problem Other chronic pain G89.29 Active 42132260 Problem Lumbago with sciatica, right side M54.41 Active 079503418 Problem Essential hypertension I10 Active 23132406 Problem Coronary artery disease involving cheesh-na coronary artery of cheesh-na heart without angina pectoris I25.10 Active [id number] ALLERGIES No Information ENCOUNTERS Encounter Location Date Diagnosis [place] [id number] [place] [address] 20546- 6675 Oct, [place] [id number] [place] [address] 13293- 0812 Sep, [place] [id number] [place] [address] 90035- 4624 Aug, [place] [id number] [place] [address] 18959- 2341 Aug, Lumbago with sciatica, right side M54.41 ; Essential hypertension I10 ; Screening for diabetes mellitus Z13.1 ; Screening for cholesterol level Z13.220 and Other chronic pain G89.29 [facility] [id number] [place] [address] 33425- 4638 Aug, [facility] [id number] [place] [address] 55645- 1524 Aug, Lumbago with sciatica, right side M54.41 [place] [id number] [place] [address] 46050- 1639 July, Lumbago with sciatica, right side M54.41 [facility] [id number] [address] 9718 Jun, Lumbago with sciatica, right side M54.41 [facility] [id number] [place] [address] 21590- 8066 Jun, Lumbago with sciatica, right side M54.41 [facility] [id number] [place] [address] 60773- 8935 May, Lumbago with sciatica, right side M54.41 [facility] [id number] [place] [address] 81126- 4232 Apr, Lumbago with sciatica, right side M54.41 [facility] [id number] [place] [address] 98223- 5264 Mar, Lumbago with sciatica, right side M54.41 [facility] [id number] [place] [address] 41933- 7330 Mar, Lumbago with sciatica, right side M54.41 [facility] [id number] [place] [address] 41297- 7561 Mar, [facility] [id number] [place] [address] 49702- 7210 Mar, Essential hypertension I10 ; Lumbago with sciatica, right side M54.41 and Other chronic pain G89.29 [facility] [id number] [place] [address] 89536- 0368 Feb, [facility] [id number] [place] [address] 45282- 1611 Aug, Essential hypertension I10 [facility] [id number] [place] [address] 88147- 2865 July, Essential hypertension I10 [facility] [id number] [place] [address] 98834- 0062 July, Essential hypertension I10 [facility] [address] [facility] [id number] [address] 4054 July, Essential hypertension I10 [facility] [id number] [address]- 2423 Jun, Essential hypertension I10 [facility] [id number] [address]- 7941 Jun, Essential hypertension I10 [facility] [address] 3[address] Jun, Essential hypertension I10 and Coronary artery disease involving cheesh-na coronary artery of cheesh-na heart without angina pectoris I25.10 [facility] [id number] 2026 May, IMMUNIZATIONS No Known Immunizations SOCIAL HISTORY Never Assessed REASON FOR VISIT PT follow-up PLAN OF CARE Activity Details Follow Up 3 Weeks Reason:F/U PT VITAL SIGNS MEDICATIONS Unknown Medications RESULTS No Results PROCEDURES Procedure Date Ordered Result Body Site THERAPEUTIC EXERCISES May 03, 2017 INSTRUCTIONS MEDICATIONS ADMINISTERED No Known Medications MEDICAL (GENERAL) HISTORY Type Description Date Medical History hypertension: Nml Echo and Renal US 05/2016 during hospitalization Medical History anxiety since passing of (feb 2016) Hospitalization History Hypertension. 1 night stay. 05/2016
--- OUTSIDE RECORDS SUMMARY | 2018-05-02 09:09 | XMS REPORT ---
Author Author MAHAD CASTILLO Organization [facility] Address [address] [place] [address] Care Team Providers Care Associate Sales Representative Name Role Phone MAHAD CASTILLO Unavailable PROBLEMS Type Condition ICD9-CM Code IAX89-LM Code Onset Dates Condition Status SNOMED Code Problem Other chronic pain G89.29 Active 38062517 Problem Lumbago with sciatica, right side M54.41 Active 723786215 Problem Essential hypertension I10 Active 87200793 Problem Coronary artery disease involving [place]iat[place] coronary artery of yuhaaviatam heart without angina pectoris I25.10 Active [id number] ALLERGIES Substance Reaction Event Type Date Status Sulfacetamide Sod-Sulfur Unknown Drug Allergy Aug, Active Penicillin G Benzathine hives Drug Allergy Aug, Active ENCOUNTERS Encounter Location Date Diagnosis [facility] [id number] [place] [address] 84126- 0110 Dec, [facility] [id number] [place] [address] 82983- 9048 Dec, [facility] [id number] [place] [address] 94623- 2852 Nov, [facility] [id number] [place] [address] 52894- 7838 Nov, Essential hypertension I10 [facility] [id number] [place] [address] 93948- 8910 Oct, [facility] [id number] [place] [address] 74876- 5034 Oct, [facility] [id number] [place] [address] 03685- 4537 Sep, [facility] [id number] [place] [address] 14119- 7047 Aug, Lumbago with sciatica, right side M54.41 [place] [id number] [place] [address] 32319- 7548 Aug, Lumbago with sciatica, right side M54.41 ; Essential hypertension I10 ; Screening for diabetes mellitus Z13.1 ; Screening for cholesterol level Z13.220 and Other chronic pain G89.29 [place] [id number] [place] [address] 19476- 6710 Aug, [place] [id number] [place] [address] 94045- 7987 Aug, Lumbago with sciatica, right side M54.41 [place] [id number] [place] [address] 87404- 2012 July, Lumbago with sciatica, right side M54.41 [place] [id number] [place] [address] 31201- 0168 Jun, Lumbago with sciatica, right side M54.41 [place] [id number] [place] [address] 15218- 2028 Jun, Lumbago with sciatica, right side M54.41 [place] [id number] [place] [address] 67229- 1192 May, Lumbago with sciatica, right side M54.41 [place] [id number] [place] [address] 98621- 0517 Apr, Lumbago with sciatica, right side M54.41 [place] [id number] [place] [address] 36196- 6339 Mar, Lumbago with sciatica, right side M54.41 [place] [id number] [place] [address] 98253- 3814 Mar, Lumbago with sciatica, right side M54.41 [place] [address] [address]- 4552 Mar, [place] [id number] [place] [address] 21244- 4114 Mar, Essential hypertension I10 ; Lumbago with sciatica, right side M54.41 and Other chronic pain G89.29 [place] [id number] [place] [address] 97421- 2773 Feb, [place] [id number] [place] [address] 36906- 6109 Aug, Essential hypertension I10 [place] [id number] [place] [address] 21457- 3742 July, Essential hypertension I10 [place] [id number] [place] [address] 49372- 3939 July, Essential hypertension I10 [place] [id number] [place] [address] 34731- 3402 July, Essential hypertension I10 [place] [id number] [place] [address] 38606- 4299 Jun, Essential hypertension I10 [place] [address] [place] [address] 49424- 5329 Jun, Essential hypertension I10 [place] [address], [place] [address]- 7083 Jun, Essential hypertension I10 and Coronary artery disease involving [place] coronary artery of yuhaaviatam heart without angina pectoris I25.10 [place] [address], [place] [address]- 5897 May, IMMUNIZATIONS No Known Immunizations SOCIAL HISTORY Never Assessed REASON FOR VISIT Blood Pressure-CARLA galvan, physical therapy on back and its not getting better PLAN OF CARE Activity Details Follow Up 3 Months with Mavis hogan BP/Low back pain Reason: Pending Test A1C (IN HOUSE) VITAL SIGNS Height 65.5 in 2017-09-08 Weight 115.4 lbs 2017-09-08 Temperature 97.9 degrees Fahrenheit 2017-09-08 Heart Rate 76 bpm 2017-09-08 Respiratory Rate 18 2017-09-08 BMI 18.91 kg/m2 2017-09-08 Blood pressure systolic 158 mmHg 2017-09-08 Blood pressure diastolic 82 mmHg 2017-09-08 MEDICATIONS Medication Instructions Dosage Frequency Start Date End Date Duration Status Tizanidine HCl 4 MG Orally qhs 1 tablet as needed Aug, Dec, 30 days Active Metoprolol Succinate ER 25 MG TAKE ONE TABLET BY MOUTH ONCE DAILY 90 Active Amlodipine Besylate 5 MG Orally Once a day 1 tablet 24h 90 days Active Aspirin 81 MG Orally Once a day 1 tablet 24h Active Lisinopril 40 MG Orally Once a day 1 tablet 24h Active Alprazolam 0.25 MG Orally every 8 hours, PRN 1 tablet Active RESULTS No Results PROCEDURES Procedure Date Ordered Result Body Site COMPREHEN METABOLIC PANEL September 08, 2017 GLYCATED HEMOGLOBIN TEST September 08, 2017 LIPID PANEL September 08, 2017 VENIPUNCT, ROUTINE* September 08, 2017 INSTRUCTIONS MEDICATIONS ADMINISTERED No Known Medications MEDICAL (GENERAL) HISTORY Type Description Date Medical History hypertension: Nml Echo and Renal US 05/2016 during hospitalization Medical History anxiety since passing of (feb 2016) Hospitalization History Hypertension. 1 night stay. 05/2016
--- OUTSIDE RECORDS SUMMARY | 2018-05-02 09:09 | XMS REPORT ---
Author Author RINKU ALFARO [facility] Address [address] [place] [address] Care Team Providers Care Counter Installer Name Role Phone RINKU ALFARO Unavailable PROBLEMS Type Condition ICD9-CM Code JAR46-IS Code Onset Dates Condition Status SNOMED Code Problem Other chronic pain G89.29 Active 78915643 Problem Lumbago with sciatica, right side M54.41 Active 244873618 Problem Essential hypertension I10 Active 84353232 Problem Coronary artery disease involving [place] coronary artery of [place] heart without angina pectoris I25.10 Active [id number] ALLERGIES No Information ENCOUNTERS Encounter Location Date Diagnosis [facility] [id number] [place] [address] 86594- 8942 Nov, [facility] [id number] [place] [address] 87569- 1448 Oct, [facility] [id number] [place] [address] 57704- 7334 Oct, [facility] [id number] [place] [address] 86824- 8725 Sep, [facility] [id number] [place] [address] 54688- 8350 Aug, [facility] [id number] [place] [address] 07308- 8584 Aug, Lumbago with sciatica, right side M54.41 ; Essential hypertension I10 ; Screening for diabetes mellitus Z13.1 ; Screening for cholesterol level Z13.220 and Other chronic pain G89.29 [facility] [id number] [place] [address] 88076- 4537 Aug, [facility] [address] [place] [address]- 3313 Aug, Lumbago with sciatica, right side M54.41 [facility] [id number] [place] [address] 24900- 9701 July, Lumbago with sciatica, right side M54.41 [facility] [id number] [place] [address] 04563- 4776 Jun, Lumbago with sciatica, right side M54.41 [facility] [id number] [place] [address] 50276- 3105 Jun, Lumbago with sciatica, right side M54.41 [facility] [id number] [place] [address] 90157- 7806 May, Lumbago with sciatica, right side M54.41 [facility] [id number] [place] [address] 93098- 9152 Apr, Lumbago with sciatica, right side M54.41 [facility] [id number] [place] [address] 57025- 9410 Mar, Lumbago with sciatica, right side M54.41 [facility] [id number] [place] [address] 56425- 6083 Mar, Lumbago with sciatica, right side M54.41 [facility] [id number] [place] [address] 57064- 9767 Mar, [facility] [id number] [place] [address] 64999- 3636 Mar, Essential hypertension I10 ; Lumbago with sciatica, right side M54.41 and Other chronic pain G89.29 [facility] [id number] [place] [address] 16618- 0708 Feb, [facility] [id number] [place] [address] 12215- 9476 Aug, Essential hypertension I10 [facility] [id number] [address]- 1338 July, Essential hypertension I10 [facility] [address] 4702 July, Essential hypertension I10 [facility] [address], [place] [address]- 2717 July, Essential hypertension I10 [facility] [address], [place] [address]- 2173 Jun, Essential hypertension I10 [facility] [address], [place] [address]- 5420 Jun, Essential hypertension I10 [facility] [address], [place] [address]- 2624 Jun, Essential hypertension I10 and Coronary artery disease involving [place] coronary artery of [place] heart without angina pectoris I25.10 [facility] [address], [place] [address]- 5223 May, IMMUNIZATIONS No Known Immunizations SOCIAL HISTORY Never Assessed REASON FOR VISIT PT f/u PLAN OF CARE Activity Details Follow Up 3 Weeks Reason:F/U PT VITAL SIGNS MEDICATIONS Unknown Medications RESULTS No Results PROCEDURES Procedure Date Ordered Result Body Site THERAPEUTIC EXERCISES May 24, 2017 INSTRUCTIONS MEDICATIONS ADMINISTERED No Known Medications MEDICAL (GENERAL) HISTORY Type Description Date Medical History hypertension: Nml Echo and Renal US 05/2016 during hospitalization Medical History anxiety since passing of (feb 2016) Hospitalization History Hypertension. 1 night stay. 05/2016
--- OUTSIDE RECORDS SUMMARY | 2018-05-02 09:10 | XMS REPORT ---
Author Author MAHAD CASTILLO Organization [facility] Address [address] [place] [address] Care Team Providers Care Sorter Upholstery Parts Name Role Phone MAHAD CASTILLO Unavailable PROBLEMS Type Condition ICD9-CM Code MIO05-CC Code Onset Dates Condition Status SNOMED Code Problem Essential hypertension I10 Active 91656375 Problem Coronary artery disease involving [place] coronary artery of [place] heart without angina pectoris I25.10 Active [id number] ALLERGIES No Information SOCIAL HISTORY Never Assessed PLAN OF CARE VITAL SIGNS MEDICATIONS Medication Instructions Dosage Frequency Start Date End Date Duration Status Lisinopril 20 mg Orally Once a day 1 tablet 24h Jun, Active RESULTS No Results PROCEDURES No Known procedures IMMUNIZATIONS No Known Immunizations MEDICAL (GENERAL) HISTORY Type Description Date Medical History hypertension: Nml Echo and Renal US 05/2016 during hospitalization Medical History anxiety since passing of (feb 2016) Hospitalization History Hypertension. 1 night stay. 05/2016
--- OUTSIDE RECORDS SUMMARY | 2018-05-02 09:10 | XMS REPORT ---
Author Author RINKU ALFARO [facility] Address [address] [place] [address] Care Team Providers Care Group Supervisor Yard Name Role Phone RINKU ALFARO Unavailable PROBLEMS Type Condition ICD9-CM Code BRV59-IE Code Onset Dates Condition Status SNOMED Code Problem Other chronic pain G89.29 Active 91619319 Problem Lumbago with sciatica, right side M54.41 Active 593853637 Problem Essential hypertension I10 Active 56190898 Problem Coronary artery disease involving elem coronary artery of elem heart without angina pectoris I25.10 Active [id number] ALLERGIES No Information ENCOUNTERS Encounter Location Date Diagnosis [place] [id number] [place] [address] 46458- 7557 Sep, [place] [id number] [place] [address] 76956- 7284 Aug, [place] [id number] [place] [address] 50858- 6618 Aug, Lumbago with sciatica, right side M54.41 ; Essential hypertension I10 ; Screening for diabetes mellitus Z13.1 ; Screening for cholesterol level Z13.220 and Other chronic pain G89.29 [facility] [id number] [place] [address] 36809- 9107 Aug, [place] [id number] [place] [address] 62279- 8505 Aug, Lumbago with sciatica, right side M54.41 [place] [address] [place] [address] 53229- 8055 July, Lumbago with sciatica, right side M54.41 [place] [id number] [place] [address] 27568- 7684 Jun, Lumbago with sciatica, right side M54.41 [facility] [id number] [place] [address] 97406- 1352 Jun, Lumbago with sciatica, right side M54.41 [facility] [id number] [place] [address] 61176- 0521 May, Lumbago with sciatica, right side M54.41 [facility] [id number] [place] [address] 297471- 8208 Apr, Lumbago with sciatica, right side M54.41 [facility] [id number] [place] [address] 01379- 0168 Mar, Lumbago with sciatica, right side M54.41 [facility] [id number] [place] [address] 95770- 1068 Mar, Lumbago with sciatica, right side M54.41 [facility] [id number] [place] [address] 89479- 2860 Mar, [facility] [id number] [place] [address] 82602- 2775 Mar, Essential hypertension I10 ; Lumbago with sciatica, right side M54.41 and Other chronic pain G89.29 [facility] [id number] [place] [address] 83746- 5686 Feb, [facility] [id number] [place] [address] 07508- 7721 Aug, Essential hypertension I10 [facility] [id number] [place] [address] 54633- 9733 July, Essential hypertension I10 [facility] [id number] [place] [address] 39429- 1302 July, Essential hypertension I10 [facility] [id number] [place] [address] 09404- 5926 July, Essential hypertension I10 [facility] [address] [facility] [id number] [address]- 4974 Jun, Essential hypertension I10 [facility] [id number] [address]- 5363 Jun, Essential hypertension I10 [facility] [address] [facility] [id number] [address]- 5970 Jun, Essential hypertension I10 and Coronary artery disease involving elem coronary artery of elem heart without angina pectoris I25.10 [facility] [address] [facility] [id number]- 9870 May, IMMUNIZATIONS No Known Immunizations SOCIAL HISTORY Never Assessed REASON FOR VISIT PT Evaluation PLAN OF CARE Activity Details Follow Up 2 Weeks Reason:f/U PT VITAL SIGNS MEDICATIONS Unknown Medications RESULTS No Results PROCEDURES Procedure Date Ordered Result Body Site PT EVAL LOW COMPLEX 20 MIN Apr 09, 2017 THERAPEUTIC EXERCISES Apr 09, 2017 INSTRUCTIONS MEDICATIONS ADMINISTERED No Known Medications MEDICAL (GENERAL) HISTORY Type Description Date Medical History hypertension: Nml Echo and Renal US 05/2016 during hospitalization Medical History anxiety since passing of (feb 2016) Hospitalization History Hypertension. 1 night stay. 05/2016
--- OUTSIDE RECORDS SUMMARY | 2018-05-02 09:10 | XMS REPORT ---
Author Author MAHAD CASTILLO Organization [facility] Address [address] [place] [address] Care Team Providers Care Book Solicitor Name Role Phone MAHAD CASTILLO Unavailable PROBLEMS Type Condition ICD9-CM Code [id number] Code Onset Dates Condition Status SNOMED Code Problem Other chronic pain G89.29 Active 22080687 Problem Lumbago with sciatica, right side M54.41 Active 739579187 Problem Essential hypertension I10 Active 40232923 Problem Coronary artery disease involving [place] coronary artery of [place] heart without angina pectoris I25.10 Active [id number] ALLERGIES Substance Reaction Event Type Date Status Sulfacetamide Sod-Sulfur Unknown Drug Allergy Mar, Active Penicillin G Benzathine hives Drug Allergy Mar, Active ENCOUNTERS Encounter Location Date Diagnosis [place] [id number] [place] [phone]- [phone] Aug, [facility] [id number] [place] [address] [phone]- 0102 Aug, [facility] [id number] [place] [address] 70075- 4788 Aug, [facility] [id number] [place] [address] 80089- 5513 Aug, Lumbago with sciatica, right side M54.41 [facility] [address] [id number] [place] [address] 25810- 3389 July, Lumbago with sciatica, right side M54.41 [facility] [id number] [place] [address] 69306- 6881 Jun, Lumbago with sciatica, right side M54.41 [facility] [id number] [place] [address] 76829- 4721 Jun, [facility] [address] [address] May, Lumbago with sciatica, right side M54.41 [facility] [address] [address] [id number] [place] [address] 86816- 9536 Apr, Lumbago with sciatica, right side M54.41 [facility] [address] [address] [id number] [place] [address] [phone]- 8726 Mar, Lumbago with sciatica, right side M54.41 [facility] [address] [id number] [place] [address] [phone]- 7856 Mar, Lumbago with sciatica, right side M54.41 [facility] [address] [id number] [place] [address] [phone]- 1946 Mar, [facility] [address] [id number] [place] [address] 15390- 7838 Mar, Essential hypertension I10 ; Lumbago with sciatica, right side M54.41 and Other chronic pain G89.29 [facility] [address] [place] [id number] [place] [address] 43671- 6946 Feb, [facility] [address] [place] [id number] [place] [address] 69374- 4940 Aug, Essential hypertension I10 [facility] [address] [place] [id number] [place] [address] 58798- 0656 July, Essential hypertension I10 [facility] [id number] [place] [address] [phone]- 1839 July, Essential hypertension I10 [facility] [id number] [place] [address] [phone]- [phone] July, Essential hypertension I10 [facility] [address] [id number] [address] Jun, Essential hypertension I10 [facility] [address] [facility] [id number] [place] [id number] Jun, Essential hypertension I10 [facility] [address] [facility] [id number] [id number] Jun, Essential hypertension I10 and Coronary artery disease involving [place] coronary artery of [place] heart without angina pectoris I25.10 [place] [address] [facility] [id number] [address] May, IMMUNIZATIONS No Known Immunizations SOCIAL HISTORY Never Assessed REASON FOR VISIT bp f/u--tcuppettRN, -- Continues with lower back pain and right leg goes numb PLAN OF CARE Activity Details Follow Up 6 Months with Gault f/u BP Reason: VITAL SIGNS Height 65.5 in 2017-03-29 Weight 115.1 lbs 2017-03-29 Temperature 98.3 degrees Fahrenheit 2017-03-29 Heart Rate 76 bpm 2017-03-29 Respiratory Rate 18 2017-03-29 BMI 18.86 kg/m2 2017-03-29 Blood pressure systolic 150 mmHg 2017-03-29 Blood pressure diastolic 84 mmHg 2017-03-29 MEDICATIONS Medication Instructions Dosage Frequency Start Date End Date Duration Status Aspirin 81 MG Orally Once a day 1 tablet 24h Active Metoprolol Succinate ER 25 MG Orally Once a day 1 tablet 24h 90 days Active Lisinopril 20 mg Orally Once a day 1 tablet 24h Active Alprazolam 0.25 MG Orally every 8 hours, PRN 1 tablet Active Amlodipine Besylate 5 MG Orally Once a day 1 tablet 24h 90 days Active RESULTS No Results PROCEDURES Procedure Date Ordered Result Body Site ASSAY OF URINE CREATININE Mar 29, 2017 COMPREHEN METABOLIC PANEL Mar 29, 2017 MICROALBUMIN, QUANTITATIVE Mar 29, 2017 VENIPUNCT, ROUTINE* Mar 29, 2017 INSTRUCTIONS MEDICATIONS ADMINISTERED No Known Medications MEDICAL (GENERAL) HISTORY Type Description Date Medical History hypertension: Nml Echo and Renal US 05/2016 during hospitalization Medical History anxiety since passing of (feb 2016) Hospitalization History Hypertension. 1 night stay. 05/2016
--- OUTSIDE RECORDS SUMMARY | 2018-05-02 09:10 | XMS REPORT ---
Author Author MAHAD CASTILLO Organization [facility] Address [address] [place] [address] Care Team Providers Care Card Placer Name Role Phone MAHAD CASTILLO Unavailable PROBLEMS Type Condition ICD9-CM Code [id number] Code Onset Dates Condition Status SNOMED Code Problem Essential hypertension I10 Active 49391937 Problem Coronary artery disease involving [place] coronary artery of [place] heart without angina pectoris I25.10 Active [id number] ALLERGIES Substance Reaction Event Type Date Status Sulfacetamide Sod-Sulfur Unknown Drug Allergy July, Active Penicillin G Benzathine hives Drug Allergy July, Active SOCIAL HISTORY Never Assessed PLAN OF CARE VITAL SIGNS Height 65.5 in 2016-07-29 Blood pressure systolic 141 mmHg 2016-07-29 Blood pressure diastolic 82 mmHg 2016-07-29 MEDICATIONS Medication Instructions Dosage Frequency Start Date End Date Duration Status Lisinopril 20 MG Orally Once a day 1 tablet 24h Jun, Active Alprazolam 0.25 MG Orally every 8 hours, PRN 1 tablet Active Amlodipine Besylate 5 MG Orally Once a day 1 tablet 24h 90 days Active Metoprolol Succinate ER 25 MG Orally Once a day 1 tablet 24h 90 days Active RESULTS No Results PROCEDURES No Known procedures IMMUNIZATIONS No Known Immunizations MEDICAL (GENERAL) HISTORY Type Description Date Medical History hypertension: Nml Echo and Renal US 05/2016 during hospitalization Medical History anxiety since passing of (feb 2016) Hospitalization History Hypertension. 1 night stay. 05/2016
--- OUTSIDE RECORDS SUMMARY | 2018-05-02 09:10 | XMS REPORT ---
Author Author MAHAD CASTILLO [facility] Address [address] [place] [address] Care Team Providers Care Manager Construction Name Role Phone MAHAD CASTILLO Unavailable PROBLEMS Type Condition ICD9-CM Code [id number] Code Onset Dates Condition Status SNOMED Code Problem Essential hypertension I10 Active 51892563 Problem Coronary artery disease involving [place] coronary artery of [place] heart without angina pectoris I25.10 Active [id number] ALLERGIES No Information SOCIAL HISTORY Never Assessed PLAN OF CARE VITAL SIGNS Height 65.5 in 2016-08-19 Blood pressure systolic 124 mmHg 2016-08-19 Blood pressure diastolic 70 mmHg 2016-08-19 MEDICATIONS No Known Medications RESULTS No Results PROCEDURES No Known procedures IMMUNIZATIONS No Known Immunizations MEDICAL (GENERAL) HISTORY Type Description Date Medical History hypertension: Nml Echo and Renal US 05/2016 during hospitalization Medical History anxiety since passing of (feb 2016) Hospitalization History Hypertension. 1 night stay. 05/2016
--- OUTSIDE RECORDS SUMMARY | 2018-05-02 09:10 | XMS REPORT ---
Author Author MAHAD CASTILLO Organization [facility] Address [address] [place] [address] Care Team Providers Care Digital Technician Name Role Phone MAHAD CASTILLO Unavailable PROBLEMS Type Condition ICD9-CM Code [id number] Code Onset Dates Condition Status SNOMED Code Problem Essential hypertension I10 Active 35849872 Problem Coronary artery disease involving [place] coronary artery of [place] heart without angina pectoris I25.10 Active [id number] ALLERGIES Substance Reaction Event Type Date Status Sulfacetamide Sod-Sulfur Unknown Drug Allergy Aug, Active Penicillin G Benzathine hives Drug Allergy Aug, Active SOCIAL HISTORY Never Assessed PLAN OF CARE Activity Details Follow Up 6 Months with Mavis f/u HTN Reason: VITAL SIGNS Height 65.5 in 2016-08-24 Weight 113 lbs 2016-08-24 Temperature 98.3 degrees Fahrenheit 2016-08-24 Heart Rate 70 bpm 2016-08-24 Respiratory Rate 20 2016-08-24 BMI 18.52 kg/m2 2016-08-24 Blood pressure systolic 118 mmHg 2016-08-24 Blood pressure diastolic 70 mmHg 2016-08-24 MEDICATIONS Medication Instructions Dosage Frequency Start Date End Date Duration Status Metoprolol Succinate ER 25 MG Orally Once a day 1 tablet 24h 90 days Active Amlodipine Besylate 5 MG Orally Once a day 1 tablet 24h 90 days Active Lisinopril 20 mg Orally Once a day 1 tablet 24h Jun, Active Aspirin 81 MG Orally Once a day 1 tablet 24h Active Alprazolam 0.25 MG Orally every 8 hours, PRN 1 tablet Active RESULTS Name Result Date Reference Range A1C 2016-08-24 Hemoglobin A1c 5.4 4.8-5.6 MICROALBUMIN/CREATININE RATIO, URINE 2016-08-24 Creatinine, Urine 17.5 Not Estab. Microalbumin, Urine <3.0 Not Estab. Microalb/Creat Ratio <17.1 0.0-30.0 CMP 2016-08-24 Glucose, Serum 103 65-99 BUN 11 6-24 Creatinine, Serum 0.77 0.57-1.00 eGFR If NonAfricn Am 87 >59 eGFR If Africn Am 101 >59 BUN/Creatinine Ratio 14 9-23 Sodium, Serum 142 134-144 Potassium, Serum 5.2 3.5-5.2 Chloride, Serum 103 96-106 Carbon Dioxide, Total 25 18-29 Calcium, Serum 9.8 8.7-10.2 Protein, Total, Serum 7.0 6.0-8.5 Albumin, Serum 4.6 3.5-5.5 Globulin, Total 2.4 1.5-4.5 A/G Ratio 1.9 1.2-2.2 Bilirubin, Total 0.5 0.0-1.2 Alkaline Phosphatase, S 79 39-117 AST (SGOT) 18 0-40 ALT (SGPT) 12 0-32 PROCEDURES Procedure Date Ordered Result Body Site VENIPUNCT, ROUTINE* August 24, 2016 COMPREHEN METABOLIC PANEL August 24, 2016 ASSAY OF URINE CREATININE August 24, 2016 GLYCATED HEMOGLOBIN TEST August 24, 2016 MICROALBUMIN, QUANTITATIVE August 24, 2016 IMMUNIZATIONS No Known Immunizations MEDICAL (GENERAL) HISTORY Type Description Date Medical History hypertension: Nml Echo and Renal US 05/2016 during hospitalization Medical History anxiety since passing of (feb 2016) Hospitalization History Hypertension. 1 night stay. 05/2016
--- NOTE | 2018-05-02 10:14 | NUR ---
Apologized for wait and pt taken warm blanket at this time. Will continue to monitor.
--- NOTE | 2018-05-02 10:36 | ED Lower Extremity ---
General Chief Complaint: Lower Extremity Stated Complaint: R FOOT UNABLE TO MOVE Nursing Triage Note: Ambulatory to rm 10 with limp on R side. Pt reports chronic back issues and is currently going to PT. Pt reports waking up this morning and not being able to move R foot. Pt reports full sensation, however has some loss of strength and motor function upon assessment. Nursing Sepsis Screen: No Definite Risk Source: patient, family Exam Limitations: no limitations History of Present Illness Date Seen by Provider: May 02, 2018 Time Seen by Provider: 10:25 Initial Comments Patient presents to ER by private conveyance with family and chief complaint this morning she woke up having some weakness in her right foot. She's had some chronic back pain being worked up outpatient conservatively with physical therapy and stretching exercises. She's never had any imaging of her back done. No history of trauma or recent car wrecks falls etc. She says sometimes she gets some pins and needles and cool sensation in her right foot. No history of coronary artery disease or vasculopathy. She does not smoke. She states that she still has good sensation in her right foot just weakness and difficulty walking and that her foot feels it is dropping and she has to swing her right hip to walk. She's had no surgeries on her back or leg. She denies any dysuria, hematuria, hesitancy, urinary incontinence, falls, numbness or loss of sensation however she has occasional paresthesias in her right lower family. The patient has a history of blood pressure for which she takes lisinopril, metoprolol, and amlodipine. She says she took her medications this morning. She says her anxiety makes her blood pressure go up and about as around. She's been following every 3 months with primary care work and on this recently. Allergies and Home Medications Allergies Coded Allergies: Penicillins (Verified Allergy, Unknown, 06/03/16) Sulfa (Sulfonamide Antibiotics) (Verified Adverse Reaction, Unknown, ) MOM AND GRANDMA'S BOTH HAD ALLERGIES. Home Medications Alprazolam 0.25 Mg Tablet, 0.25 MG PO Q8H PRN for ANXIETY Prescribed by: SUNITHA RODRIGUEZ on 06/04/16 1040 Amlodipine Besylate 5 Mg Tablet, 5 MG PO DAILY Prescribed by: INDER PARRISH on 06/04/16 0802 Metoprolol Succinate 25 Mg Tab.er.24h, 25 MG PO DAILY Prescribed by: INDER PARRISH on 06/04/16 0802 Patient Home Medication List Home Medication List Reviewed: Yes Review of Systems Constitutional: No chills, No diaphoresis EENTM: No ear discharge, No ear pain Respiratory: No cough, No short of breath Cardiovascular: No chest pain, No palpitations Gastrointestinal: No abdominal pain, No nausea, No vomiting Genitourinary: No discharge, No dysuria Musculoskeletal: see HPI, back pain; No joint pain Psychiatric/Neurological: See HPI Past Ofduodv-Egdnxz-Kipeek Hx Patient Social History Alcohol Use: Denies Use Recreational Drug Use: No 2nd Hand Smoke Exposure: No Recent Foreign Travel: No Contact w/Someone Who Travel: No Recent Infectious Disease Expo: No Recent Hopitalizations: No Physical Abuse: No Sexual Abuse: No Seasonal Allergies Seasonal Allergies: No Past Medical History Surgeries: No Respiratory: No Cardiac: Yes Hypertension Neurological: No Reproductive Disorders: No Sexually Transmitted Disease: No HIV/AIDS: No Genitourinary: No Gastrointestinal: No Musculoskeletal: Yes Chronic Back Pain Endocrine: No HEENT: No Cancer: No Psychosocial: No Integumentary: No Blood Disorders: No Adverse Reaction/Blood Tranf: No Family Medical History Hypertension Physical Exam Vital Signs Vital Signs - First Documented 05/02/18 09:15 Temp 95.5 Pulse 115 Resp 18 B/P (MAP) 197/99 (131) Pulse Ox 99 O2 Delivery Room Air Capillary Refill : Less Than 3 Seconds Height, Weight, BMI Height: 5'5.50" Weight: 117lbs. 6.0oz. 53.216725ji; 18.3 BMI Method:Stated General Appearance: WD/WN, no apparent distress HEENT: PERRL/EOMI, pharynx normal Neck: non-tender, full range of motion, normal inspection Cardiovascular: normal peripheral pulses, regular rate, rhythm, no edema Respiratory: no respiratory distress, no accessory muscle use Back: normal inspection, vertebral tenderness (midline lumbar but also bilateral para lumbar tenderness to palpation.) Hips: bilateral hip non-tender, bilateral hip normal inspection, bilateral hip normal range of motion, bilateral hip no evidence of injury Ankles: bilateral ankle non-tender, bilateral ankle normal inspection, bilateral ankle normal range of motion, bilateral ankle no evidence of injury Feet: bilateral foot non-tender, bilateral foot normal inspection, bilateral foot normal range of motion Reflexes: 2+ knee (R), 2+ knee (L) Neurologic/Tendon: normal sensation, normal tendon functions, responds to pain , no evidence tendon injury, motor deficit (4 out of 5 motor strength in the right lower extremity from the hip abductors down to the foot plantar motion) Neurologic/Psychiatric: 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, alert, normal mood/affect, oriented x 3, other (negative for drift) Skin: normal color, warm/dry Progress/Results/Core Measures Results/Orders My Orders Orders - MARTIN DÍAZ Ct Lumbar Spine Wo (05/02/18 10:33) Labetalol Injection (Normodyne Injection (05/02/18 11:45) Iv Heplock-Insert (Order) (05/02/18 11:34) Medications Given in ED Current Medications Medications Dose Ordered Sig/Alice Route Start Time Stop Time Status Last Admin Dose Admin Labetalol HCl 20 mg ONCE ONCE IV 05/02/18 11:45 05/02/18 11:46 DC 05/02/18 11:55 20 MG Vital Signs/I&O 05/02/18 09:15 Temp 95.5 Pulse 115 Resp 18 B/P (MAP) 197/99 (131) Pulse Ox 99 O2 Delivery Room Air Blood Pressure Mean: 131 Progress Progress Note #1: Time: 11:15 Progress Note She has some motor weakness limited to her right lower extremity. No sensation deficit. No paresthesias presently. No significant pain. She has a history of 2 years of back pain with no inciting event and no history of trauma. She has no urinary symptoms, saddle anesthesia or or numbness. She does have a Lower motor nerve gait with wide circum-abduction of the right foot on walking. She has no cerebellar central nervous system symptoms or signs. We will obtain a CT of her lumbar spine looking for a cauda equina syndrome. Progress Note #2: Time: 11:[address] doesn't show any acute pathology. We don't have MRI available tomorrow. Reviewing to pass her back off to primary care. We'll give her referral to orthopedics as well. She has no other neurologic symptoms nor any significant risk factors cardiovascularly or 4 stroke. Her blood pressure has stayed elevated but she says is been this way for months so were going to increase some of her blood pressure medicines. We'll give her a dose of labetalol now and see if this improves any of her neurologic symptoms. Patient now reveals that she's been having foot drop from the very did go to years ago but it's intermittent. She states that been working for the past 2 years on her blood pressure but have not gotten very good control of it. She's been working with physical therapy but she says they've not addressed her neurologic symptoms merely the pain and tightness and difficulty walking. Progress Note #3: Time: 12:46 Progress Note An IV was established and labetalol 20 mg was given which brought her blood pressure down significantly to 136/78. Patient is feeling well still having no new neurologic symptoms. Same complaints of tightness in her leg. Same gait. We' ll set her up with primary care to discuss things such as an ADRIANA and workup to rule out cardiovascular source of her chronic leg problems and back problems. The next step might consider then would be to refer to neurology. Physical therapy would be an appropriate referral but she is already with them. Since most of her foot drop she is to be associated with weakness in the anterior tibial muscle groups the peroneal nerve or other nerve deficit might best be seen on an EMG or other similar study. Plan to initiate her on chlorthalidone 25 mg daily and follow-up next 1-2 weeks with primary care. Diagnostic Imaging Diagonstic Imaging: CT (without contrast) Plain Films/CT/US/NM/MRI: other (lumbar spine) Comments [facility] [place] NAME: JUDITH KLINE [facility] REC#: [id number] PT STATUS: REG ER : 1960 PHYSICIAN: MARTIN DÍAZ MD ADMIT DATE: 05/02/18/ER Draft Date of Exam:05/02/18 CT LUMBAR SPINE WO PROCEDURE: CT lumbar spine without contrast. TECHNIQUE: Multiple contiguous axial images were obtained through the lumbar spine without the use of intravenous contrast. Sagittal and coronal reformations were then performed. INDICATION: Low back pain and right leg pain. FINDINGS: Curvature and alignment of the lumbar spine is normal. Vertebral body heights are maintained. There is degenerative disc disease T12-L1 level with disc space narrowing and marginal spurring. No fractures are seen. Bony canal appears to be widely patent. Paraspinous tissues are unremarkable. There does appear to be moderate amount of stool throughout the colon. IMPRESSION: T12-L1 degenerative disc disease. There is no acute bony abnormality identified. If there is concern for discogenic disease, MRI would be useful for further evaluation. Dictated on workstation # [id number] Dict: 05/02/18 1113 Trans: 05/02/18 1117 TS [id number] Interpreted by: CRISTOPHER ARCEO MD Electronically signed by: Reviewed: Reviewed by Me Consults : Consulting Physician: BEATRIZ MCCAULEY MD Consults Notes Discussed case and imaging with Dr. Mccauley and he reviewed the images as we spoke and said that he did not see anything impressive and would recommend following up with primary care. Departure Impression Primary Impression: Acquired right foot drop Additional Impression: Asymptomatic hypertension Disposition: 01 HOME, SELF-CARE Condition: Stable Departure-Patient Inst. Decision time for Depature: 12:48 Referrals: NO,LOCAL PHYSICIAN (PCP/Family) Primary Care Physician Patient Instructions: Foot Drop, High Blood Pressure Emergencies Add. Discharge Instructions: Your foot drop does not seem to be from musculoskeletal related to your back. Follow-up with physical therapy and primary care to rule out other potential causes of your foot drop. You may also consider referral to neurology after an appropriate primary care workup. Your blood pressure is significantly elevated and can contribute to many of your problems. We are going to initiate chlorthalidone 25 mg daily over the next 2 weeks and I would like to follow up with your primary care doctor in the next 1-2 weeks for recheck on your blood pressure and blood electrolytes. All discharge instructions reviewed with patient and/or family. Voiced understanding. Scripts Chlorthalidone (Chlorthalidone) 25 Mg Tablet 25 MG PO DAILY for 14 Days, #14 TAB 0 Refills Prov: MARTIN DÍAZ 05/02/18 Copy Copies To 1: YUDI WEIR DO MARTIN DÍAZ May 02, 2018 10:36
--- NOTE | 2018-05-02 11:18 | Diagnostic Imaging Report ---
PROCEDURE: CT lumbar spine without contrast. TECHNIQUE: Multiple contiguous axial images were obtained through the lumbar spine without the use of intravenous contrast. Sagittal and coronal reformations were then performed. INDICATION: Low back pain and right leg pain. FINDINGS: Curvature and alignment of the lumbar spine is normal. Vertebral body heights are maintained. There is degenerative disc disease T12-L1 level with disc space narrowing and marginal spurring. No fractures are seen. Bony canal appears to be widely patent. Paraspinous tissues are unremarkable. There does appear to be moderate amount of stool throughout the colon. IMPRESSION: T12-L1 degenerative disc disease. There is no acute bony abnormality identified. If there is concern for discogenic disease, MRI would be useful for further evaluation. Dictated by: Dictated on workstation # [id number]
[2018-05-02] MEDS ORDERED: LABETALOL HCL 20 MG/4 ML VIAL IV ONE (11:45)
[2018-05-02] MEDS ORDERED: CHLO25TA22 PO (12:57)
[2018-05-02 13:00] VITALS: BP 153/83
== END 2018-05-02 13:00 | disposition home or self-care (01) ==
LOC: EDUNIT# 09:04 → ER 09:05
DX: M21.371 Foot drop, right foot (principal); I95.9 Hypotension, unspecified; I10 Essential (primary) hypertension; Z88.0 Allergy status to penicillin; Z88.2 Allergy status to sulfonamides
CPT/HCPCS: 72131

== ENCOUNTER 2018-05-05 08:59 | Emergency (ER) | payer SELFPAY ==
[~2018-05-05] VITALS: Ht 165.1 cm; Wt 52.2 kg
[~2018-05-05 08:59] MED LIST changes: +CHLO25TA22 PO
[2018-05-05] MEDS ORDERED: LISI40TA PO (09:40)
--- NOTE | 2018-05-05 10:09 | ED Neurological Problem ---
General Chief Complaint: Neurological Problems Stated Complaint: RT ARM NUMBNESS Nursing Triage Note: ARRIVED VIA . STATES SHE WAS SEEN HERE FOR LEG WEAKNESS THEN SENT TO DR CASTILLO. DR CASTILLO CHANGED HER BP MEDS AND TOLD HER IF SHE BECAME WORSE WITH THE WEAKNES TO GO BACK TO THE ER. PT STATES HER RIGHT ARM/HAND IS NUMB WHICH STARTED THIS AM. Nursing Sepsis Screen: No Definite Risk Source: patient Exam Limitations: no limitations History of Present Illness Date Seen by Provider: May 05, 2018 Time Seen by Provider: 10:04 Initial Comments The patient is a 57-year-old white female who was here on 05/02 with complaints of right leg weakness and a foot drop. Her blood pressure was noted to be elevated at that time and adjustments were made. A CT scan was done of the lumbar spine. She reports that the leg now has problems up into the thigh. In addition she awakened this morning with the sense of numbness in her right arm. She reports that she sleeps on her back with her hands folded over her belly and the elbows on the bed. She saw Dr. Castillo at the [facility] and there is an MRI planned and to be scheduled. She has been able to walk with a walker however the foot drop interferes. Timing/Duration: 4-6 hours Associated Symptoms: numbness in legs/feet, other Allergies and Home Medications Allergies Coded Allergies: Penicillins (Verified Allergy, Unknown, 06/03/16) Sulfa (Sulfonamide Antibiotics) (Verified Adverse Reaction, Unknown, ) MOM AND GRANDMA'S BOTH HAD ALLERGIES. Home Medications Alprazolam 0.25 Mg Tablet, 0.25 MG PO Q8H PRN for ANXIETY Prescribed by: SUNITHA RODRIGUEZ on 06/04/16 1040 Amlodipine Besylate 5 Mg Tablet, 5 MG PO DAILY Prescribed by: INDER PRARISH on 06/04/16 0802 Chlorthalidone 25 Mg Tablet, 25 MG PO DAILY Prescribed by: MARTIN DÍAZ on 05/02/18 1257 Lisinopril 40 Mg Tablet, 40 MG PO DAILY, (Reported) Metoprolol Succinate 25 Mg Tab.er.24h, 25 MG PO DAILY Prescribed by: INDER PARRISH on 06/04/16 0802 Patient Home Medication List Home Medication List Reviewed: Yes Review of Systems Review of Systems Constitutional: see HPI Eyes: No Symptoms Reported Ears, Nose, Mouth, Throat: no symptoms reported Respiratory: no symptoms reported Cardiovascular: no symptoms reported Gastrointestinal: no symptoms reported Genitourinary: no symptoms reported Musculoskeletal: see HPI Psychiatric/Neurological: No Symptoms Reported Endocrine: No Symptoms Reported Hematologic/Lymphatic: No Symptoms Reported Past Ejbtqgv-Tjdouk-Gikiav Hx Patient Social History Alcohol Use: Denies Use Recreational Drug Use: No Smoking Status: Never a Smoker 2nd Hand Smoke Exposure: No Recent Foreign Travel: No Contact w/Someone Who Travel: No Recent Infectious Disease Expo: No Recent Hopitalizations: No Seasonal Allergies Seasonal Allergies: No Past Medical History Surgeries: No Respiratory: No Cardiac: Yes Hypertension Neurological: No Reproductive Disorders: No Sexually Transmitted Disease: No HIV/AIDS: No Genitourinary: No Gastrointestinal: No Musculoskeletal: Yes Chronic Back Pain Endocrine: No HEENT: No Cancer: No Psychosocial: No Integumentary: No Blood Disorders: No Adverse Reaction/Blood Tranf: No Family Medical History Hypertension Physical Exam Vital Signs Vital Signs - First Documented 05/05/18 09:20 Temp 96.2 Pulse 93 Resp 16 B/P (MAP) 189/99 (129) Pulse Ox 98 O2 Delivery Room Air Capillary Refill : Less Than 3 Seconds Height, Weight, BMI Height: 5'5.00" Weight: 115lbs. 6.0oz. [id number]; 18.3 BMI Method:Stated General Appearance: no apparent distress HEENT: normal ENT inspection Neck: full range of motion Respiratory: chest non-tender, lungs clear, normal breath sounds, no respiratory distress, no accessory muscle use, respiratory distress Cardiovascular: normal peripheral pulses, regular rate, rhythm, no edema, no gallop, no JVD, no murmur Gastrointestinal: normal bowel sounds, non tender, soft, no organomegaly, no pulsatile mass Back: normal inspection Extremities: other (there is inability to dorsiflex the right foot. It also appears that although she is quite slender the bony structures above the right malleoli are smaller than on the left) Motor/Sensory: other Skin: normal color, warm/dry Lymphatic: no adenopathy Progress/Results/Core Measures Results/Orders Vital Signs/I&O 05/05/18 09:20 Temp 96.2 Pulse 93 Resp 16 B/P (MAP) 189/99 (129) Pulse Ox 98 O2 Delivery Room Air Blood Pressure Mean: 129 Departure Communication (Admissions) Attempt was made to call Dr. castellon for discussion about out patient testing. She was presently unavailable. It is felt that MRI of the brain and cervical cord is needed as there is at least the suspicion of multiple sclerosis. Impression Primary Impression: Neurological dysfunction Disposition: HOME, SELF-CARE Condition: Against Medical Advice Departure-Patient Inst. Decision time for Depature: 10:13 Referrals: MAHAD CASTILLO MD (PCP) Primary Care Physician NO,LOCAL PHYSICIAN (Family) Primary Care Physician Add. Discharge Instructions: All discharge instructions reviewed with patient and/or family. Voiced understanding. Dr. Castillo was not presently available. I am hoping that she will call me back at the number given. At that time I will discuss your need for MRI ANGELIQUE MAY MD May 05, 2018 10:09
[2018-05-05 10:29] VITALS: BP 144/77
== END 2018-05-05 10:29 | disposition home or self-care (01) ==
LOC: EDUNIT# 08:59 → ER 09:01
DX: R29.818 Other symptoms and signs involving the nervous system (principal); I10 Essential (primary) hypertension; Z88.0 Allergy status to penicillin; Z88.2 Allergy status to sulfonamides
CPT/HCPCS: 99283

== ENCOUNTER → 2018-05-20 | Outpatient (CLI) | payer SELFPAY ==
[~2018-05-20] MED LIST changes: +GADOBUTROL 7.5 MMOL/7.5 ML (GADAVIST) VIAL IV ONE; +LISI40TA PO
[2018-05-20 12:29] LABS: CREATININE SERUM 0.97 MG/DL (0.60-1.30)
--- NOTE | 2018-05-20 15:33 | Diagnostic Imaging Report ---
PROCEDURE: MR imaging of the brain with and without contrast. TECHNIQUE: Multiplanar, multisequence MR imaging of the brain was performed with and without contrast. INDICATION: Foot drop. FINDINGS: There is prominence of the ventricles and sulci. There are multifocal areas of abnormal increased T2 signal intensity on the FLAIR acquisitions in the periventricular white matter and subcortical white matter bilaterally. There are small multifocal areas of diffusion restriction in the left frontal lobe. Several of these demonstrate contrast enhancement. 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 There is no hydrocephalus. There is no midline shift. There is no hemorrhage. There is no extra-axial fluid collection. The sinuses and mastoid air cells are clear. Globes and intraorbital structures are unremarkable. The central arterial and dural venous sinus flow voids are preserved. IMPRESSION: 1. Small multifocal areas of diffusion restriction in the left frontal lobe, several of which also demonstrate contrast enhancement. This is compatible with subacute embolic CVA. 2. Atrophy and some mild chronic microvascular ischemic disease. 3. No other acute intracranial abnormality. Dictated by: Dictated on workstation # [id number]
== END ==
LOC: RAD 11:44
PROVIDERS: ATTEND Family Medicine
DX: I67.82 Cerebral ischemia (principal); G31.9 Degenerative disease of nervous system, unspecified
CPT/HCPCS: 36415; 70553; 82565; 84520

== ENCOUNTER → 2018-06-23 | Outpatient (CLI) | payer OTHER ==
[~2018-06-23] MED LIST changes: -GADOBUTROL 7.5 MMOL/7.5 ML (GADAVIST) VIAL IV ONE
--- NOTE | 2018-06-23 13:07 | Diagnostic Imaging Report ---
PROCEDURE: US carotid duplex, bilateral. TECHNIQUE: Multiple real-time grayscale images were obtained over the carotid arteries in various projections, bilaterally. Additional spectral analysis and color Doppler duplex images were also obtained. INDICATION: Ischemic CVA. FINDINGS: Mild plaquing is identified in the right carotid bifurcation extending into the proximal internal and external carotid arteries. There is more moderate plaque identified in the mid and distal left CCA with minimal plaquing identified in the proximal left ICA. There is some velocity elevation in the mid and distal right ICA reaching 150 cm/s, consistent with 60 to 79% diameter stenosis. No significant velocity elevation on the left is identified. Both vertebral arteries demonstrate antegrade flow. IMPRESSION: Bilateral carotid plaque. Velocity measurements in the right ICA are consistent with approximately 60 to 79% diameter stenosis. Parameters based on the consensus panel Jhaveri-Scale and Doppler ultrasound criteria published January 2003, Radiology, Volume 229. DOPPLER (peak systolic velocity M/S Right Left CCA 1.1 0.95 ICA Proximal 1.1 0.91 ICA Mid 1.3 0.98 ICA Distal 1.5 1.0 RATIO 1.31 1.08 ECA 2.4 1.3 VERT 0.77 0.50 Dictated by: Dictated on workstation # [id number]
== END ==
LOC: CARD 09:04
PROVIDERS: ATTEND Family Medicine
DX: I65.23 Occlusion and stenosis of bilateral carotid arteries (principal); I34.0 Nonrheumatic mitral (valve) insufficiency; I63.9 Cerebral infarction, unspecified
CPT/HCPCS: 93306; 93880

== ENCOUNTER → 2019-01-16 | Outpatient (CLI) | payer SELFPAY ==
--- NOTE | 2019-01-16 12:50 | Diagnostic Imaging Report ---
PROCEDURE: US carotid duplex, bilateral. TECHNIQUE: Multiple real-time grayscale images were obtained over the carotid arteries in various projections, bilaterally. Additional spectral analysis and color Doppler duplex images were also obtained. INDICATION: CVA and carotid stenosis. FINDINGS: There is [id number] plaquing of the carotid bifurcations and proximal internal carotid arteries bilaterally. No significant velocity elevation is seen. Both vertebral arteries show antegrade flow. IMPRESSION: Qjnx-cx-hiczkodz bilateral carotid plaque. No significant velocity elevation is seen on today's exam within the internal or common carotid systems. Parameters based on the consensus panel Jhaveri-Scale and Doppler ultrasound criteria published January 2003, Radiology, Volume 229. DOPPLER (peak systolic velocity M/S Right Left CCA .80 .97 ICA Proximal 1.2 1.1 ICA Mid 1.2 .87 ICA Distal 1.16 .97 RATIO 1.5 1.1 ECA 1.65 1.17 VERT .60 .85 Dictated by: Dictated on workstation # [id number]
== END ==
LOC: RAD 11:32
PROVIDERS: ATTEND Family Medicine
DX: I65.23 Occlusion and stenosis of bilateral carotid arteries (principal)
CPT/HCPCS: 93880

== ENCOUNTER → 2019-12-25 | Outpatient (CLI) | payer SELFPAY ==
[~2019-12-25] MED LIST changes: +ALPR.25T PO; -ALPR0.254 PO; -METO-387 PO; +MTP25TSR PO
--- NOTE | 2019-12-25 10:04 | Diagnostic Imaging Report ---
CLINICAL INDICATION: Patient with coronary artery disease and carotid stenosis bilaterally. COMPARISON: Ultrasound of the carotid arteries dated 01/16/2019. EXAM: Real-time carotid Doppler duplex imaging was performed bilaterally. Peak systolic velocity, ICA/CCA peak systolic ratio, spectral analysis, and vascular morphology were studied. FINDINGS: ARTERY VELOCITY Right Left CCA 0.94 m/s 0.86 m/s ICA 1.17 m/s 1.02 m/s ECA 1.68 m/s 0.83 m/s ICA/CCA 1.25 1.18 VERT.ART Antegrade Antegrade There is mild bilateral carotid artery atherosclerotic disease. There are slightly elevated velocities involving the right ECA which previously measured 1.65 m/s. IMPRESSION: 1. Stable elevated velocity involving the right ECA suggesting a mild to moderate stenosis. 2. Otherwise, there is no significant change to the bilateral carotid artery atherosclerotic disease with no grayscale or Doppler evidence of significant vascular stenosis. Dictated by: Dictated on workstation # [id number]
== END ==
LOC: RAD 08:26
PROVIDERS: ATTEND Family Medicine
DX: I65.23 Occlusion and stenosis of bilateral carotid arteries (principal); I25.10 Atherosclerotic heart disease of native coronary artery without angina pectoris
CPT/HCPCS: 93880

== ENCOUNTER 2021-05-22 05:32 | Outpatient (RCR) | payer MEDICARE ==
[~2021-05-22] VITALS: Ht 165.1 cm; Wt 53.5 kg
== END 2021-05-22 09:58 | disposition home or self-care (01) ==
LOC: PREOP 05:32
PROVIDERS: ATTEND Surgery
DX: Z01.812 Encounter for preprocedural laboratory examination (principal); K29.50 Unspecified chronic gastritis without bleeding; R19.5 Other fecal abnormalities; Z20.822 Contact with and (suspected) exposure to COVID-19
CPT/HCPCS: 87635

== ENCOUNTER → 2021-05-22 | Outpatient (CLI) | payer MEDICARE ==
[~2021-05-22] MED LIST changes: +AMLO-250 PO; -AMLO5TAB9 PO; +ASPI-999 PO; +ATOR40TA70 PO; -LISI40TA PO; +LISI40TA9 PO; +MELO10CA3 PO; +TRAM50TA3 PO
== END ==
LOC: LABNPT 06:11
PROVIDERS: ATTEND Surgery
DX: Z53.9 Procedure and treatment not carried out, unspecified reason (principal)

== ENCOUNTER 2021-05-26 09:43 | Day surgery (SDC) | payer MEDICARE ==
[~2021-05-26] VITALS: Ht 165 cm; Wt 63.0 kg
[2021-05-26] MEDS ORDERED: LACTATED RINGERS 1,000 ML IV ONE ×2 (09:49→12:01)
[2021-05-26] MEDS ORDERED: LACTATED RINGERS 1,000 ML IV STA (09:57)
[2021-05-26] MEDS ORDERED: HURRICAINE EXT TUBE (BENZOCAINE) XX PRN (10:00)
[2021-05-26 10:15] VITALS: BP 165/88
--- NOTE | 2021-05-26 10:50 | Progress Note-Pre Operative ---
Pre-Operative Progress Note H&P Reviewed The H&P was reviewed, patient examined and no changes noted. Time Seen by Provider: 10:47 Date H&P Reviewed: May 26, 2021 Time H&P Reviewed: 10:47 Pre-Operative Diagnosis: + Cologuard, chronic gastritis NOAM ARSHAD DO May 26, 2021 10:49
[2021-05-26] MEDS ORDERED: PROPOFOL INJECTION 50 ML IV ONE (11:53)
[2021-05-26 12:30] VITALS: BP 70/59
[2021-05-26 12:35] VITALS: BP 72/42
--- NOTE | 2021-05-26 12:35 | Progress Note-Post Operative ---
Post-Operative Progess Note Surgeon (s)/Operator Bearer Systems (s) Surgeon NOAM ARSHAD DO Operator Bearer Systems: Roxi Austin Pre-Operative Diagnosis + Cologuard, chronic gastritis Post-Operative Diagnosis Esophagitis Gastritis Hiatal hernia Polyp internal hemorrhoid Procedure & Operative Findings Date of Procedure 05/26/21 Procedure Performed/Findings EGD with bx Colonoscopy with bx PROCEDURE NOTE: After informed consent was obtained, the patient was brought to the endoscopy suite, placed in bed in left lateral decubitus position. She was administered IV sedation by the INDUSTRIAL MANAGEMENT TEACHER who then monitored vitals the entire time, heart rate, blood pressure and pulse ox and the scope was inserted down the mouth through the esophagus into the stomach. On the way down, noted some mild esophagitis, took a picture, pushed into the stomach, pushed past the antrum into the duodenum. Duodenum looked good. Pulled back and did a biopsy of antrum, then retroflexed the scope, saw a hiatal hernia, took a picture of this and then pulled the scope into the GE junction, took another picture of the hiatal hernia and then did a biopsy of the GE junction. Pushed the scope back into the stomach, suctioned all the air out of the stomach. At this point pulled the scope up the esophagus and out the mouth. Switched camera, switched gloves, went down below and started the colonoscopy. Pushed all the way into about 150 cm to get all the way to cecum, took a picture of the appendiceal orifice and noted the ileocecal valve. Then slowly withdrew the scope, insufflating to look circumferentially at the pierson starting in the cecum, up the ascending colon to the hepatic flexure, then down the transverse colon, splenic flexure, into the descending colon, down into the sigmoid. At the bottom of the sigmoid and top of the rectum saw a small flat polyp and did a cold biopsy. Finally into the rectum, retroflexed in the rectal vault and saw some minimal internal hemorrhoids and took a picture of this. The patient tolerated the procedure and she recovered in the endoscopy suite. Anesthesia Type IV sedation by INDUSTRIAL MANAGEMENT TEACHER Estimated Blood Loss Estimated blood loss (mL): scant Specimens/Packing Specimens Removed antral bx GE jxn bx Sigmoid polyp bx NOAM ARSHAD DO May 26, 2021 12:35
--- NOTE | 2021-05-26 12:36 | Endoscopy Discharge Instruct ---
Endo Procedure/Findings Findings 1.: Gastritis 2.: Hiatal Hernia, Other Findings (moderate esophagitis) 3.: Polyp 4.: Internal Hemorrhoids Discharge Instructions - Activity: You might feel a little sleepy until tomorrow. This is due to the medicine you received to relax you. Until tomorrow, you should: NOT drive a car, operate machinery or power tools. NOT drink any alcoholic beverages. NOT make any important decisions or sign importortant papers. Do not return to work until tomorrow, unless otherwise instructed. Resume previous activities tomorrow. Diet: Start by taking liquids. If you tolerate liquids, advance to solid food. 1.: EGD in 1 year 2.: Colonscopy in 5 years Notify Physician - If you experience excessive bleeding, unusual abdominal pain, fever, or chest pain, contact your doctor immediately. NOAM ARSHAD DO May 26, 2021 12:36
[2021-05-26 12:40] VITALS: BP 80/49
[2021-05-26 13:02] VITALS: BP 128/75
--- NOTE | 2021-05-26 13:19 | Anesthesia-General Post-Op ---
MAC Patient Condition Mental Status/LOC: Same as Preop Cardiovascular: Satisfactory Nausea/Vomiting: Absent Respiratory: Satisfactory Pain: Controlled Complications: Absent Post Op Complications Complications None Follow Up Care/Instructions Patient Instructions None needed. Anesthesiology Discharge Order Discharge Order Patient is doing well, no complaints, stable vital signs, no apparent adverse anesthesia problems. No complications reported per nursing. MAGGIE MANE CRNA May 26, 2021 13:19
== END 2021-05-26 13:05 | disposition home or self-care (01) ==
LOC: ENDO 09:43
PROVIDERS: ATTEND Surgery
DX: K63.5 Polyp of colon (principal); K20.90 Esophagitis, unspecified without bleeding; K29.50 Unspecified chronic gastritis without bleeding; K44.9 Diaphragmatic hernia without obstruction or gangrene; K64.8 Other hemorrhoids; Z79.82 Long term (current) use of aspirin; I10 Essential (primary) hypertension; Z79.899 Other long term (current) drug therapy

== ENCOUNTER → 2023-01-12 | Outpatient (CLI) | payer MEDICARE ==
--- NOTE | 2023-01-12 14:51 | Diagnostic Imaging Report ---
INDICATION: Postmenopausal screening COMPARISON: None FINDINGS: AP Spine L1-L4: [BMD (g/cm2): 0.833] [T-Score: -3.1] [Z-Score: -1.4] [BMD Previous: na] [BMD % Change: na] LT Hip Neck: [BMD (g/cm2): 0.708] [T-Score: -2.4] [Z-Score: -0.8] LT Hip Total: [BMD (g/cm2):0.778] [T-Score:-1.8] [Z-Score: -0.5] [BMD Previous: na] [BMD % Change: na] RT Hip Neck: [BMD (g/cm2):0.687] [T-Score:-2.5] [Z-Score:-1.0] RT Hip Total: [BMD (g/cm2):0.764] [T-score:-1.9] [Z-Score:-0.7] [BMD Previous:na] [BMD % Change:na] *Indicates significant change from prior examination based on 95% confidence level. World Health Organization criteria for BMD interpretation classify patients as Normal (T-score at or above -1.0), Osteopenic (T-score between -1.0 and -2.5) or Osteoporotic (T-score at or below -2.5). LIMITATIONS AND MODIFICATION: None. FRACTURE RISK (FRAX SCORE): The ten year probability of (%): Major Osteoporotic Fracture: [20.1] Hip Fracture: [2.5] IMPRESSION: 1. Osteoporosis. 2. Baseline examination. 3. See below National Osteoporosis Foundation guidelines on when to potentially initiate pharmacologic therapy. Based on the National Osteoporosis Foundation Guidelines, pharmacologic treatment should be initiated in any of the following, unless clinical conditions suggest otherwise: * Any patient with prior fragility fracture of the hip or vertebrae. A spine fracture indicates 5X risk for subsequent spine fracture and 2X risk for subsequent hip fracture. * Osteoporosis (T-score <-2.5). * Postmenopausal women and men age 50 and older with low bone mass/osteopenia (T-score between -1.0 and -2.5) by DXA and 10-year major osteoporotic fracture greater than 20% or a 10-year probability of hip fracture greater than 3%. These fracture risks are supplied above in the FRAX score, if applicable. * Clinician judgement and/or patient preferences may indicate treatment for people with 10-year fracture probabilities above or below these levels. Dictated by: Dictated on workstation # [id number]
== END ==
LOC: RAD 12:03
PROVIDERS: ATTEND Family Medicine
DX: Z13.820 Encounter for screening for osteoporosis (principal); M81.0 Age-related osteoporosis without current pathological fracture; Z78.0 Asymptomatic menopausal state
CPT/HCPCS: 77080